=== PATIENT | female | born 1945 | race Caucasian/White ===

== ENCOUNTER → 2017-02-26 | Outpatient (CLI) | payer BC ==
[~2017-02-26] MED LIST: ANS100 PO; ATEN50TA8 PO; ATV1 PO; CALC500C70 PO; COSAMIN DS PO; FLUR100T PO; IBUP-1428 PO; LORA-741 PO; MISC1CAP7 PO; MULT-513 PO; OMEG10007 PO; OXYC-57 PO
[2017-02-26 09:32] LABS: BASO % 1.4 %; BASO ABS # 0.13 K/uL (0-0.2); COMPLETE YES; EOS % 6.5 %; HEMATOCRIT 42.8 % (37-47); IG% 0.2 %; LYMPH % 40.7 %; LYMPH ABS # 3.77 K/uL (1.2-3.4); MEAN CELL VOLUME 90.5 fL (80-100); MEAN CORPUSCULAR HEMOGLOBIN 29.8 pg (25-34); MEAN CORPUSCULAR HGB CONC 32.9 g/dl (32-36); MEAN PLATELET VOLUME 12.1 fL (7.4-10.4); MONO % 8.7 %; NEUT % 42.5 %; PLATELET COUNT 197 K/uL (130-400); RED BLOOD COUNT 4.73 M/uL (4.2-5.4); WHITE BLOOD COUNT 9.26 K/uL (4.8-10.8)
[2017-02-26 09:51] LABS: CALCIUM 9.4 mg/dl (8.5-10.1)
[2017-02-26 09:55] LABS: ALT/SGPT 30 U/L (12-78); AST/SGOT 19 U/L (15-37); BLOOD UREA NITROGEN 14 mg/dl (7-18); BUN/CREATININE RATIO 15.4 (10-20); CARBON DIOXIDE 27 mmol/L (21-32); CHLORIDE 101 mmol/L (98-107); CHOLESTEROL 217 mg/dl (0-200); CREATININE 0.91 mg/dl (0.60-1.20); GLUCOSE 96 mg/dl (70-99); POTASSIUM 4.2 mmol/L (3.5-5.1); SODIUM 137 mmol/L (136-145); TRIGLYCERIDES 238 mg/dl (0-150); VERY LOW DENSITY LIPOPROT CALC 48 mg/dl
[2017-02-26 10:05] LABS: ALKALINE PHOSPHATASE 50 U/L (45-117); CHOLESTEROL/HDL RATIO 6.6; HDL CHOLESTEROL 33 mg/dl; LDL CHOLESTEROL CALCULATED 136 mg/dl
== END | disposition home or self-care (01) ==
LOC: C.LAB1850 07:56
PROVIDERS: ATTEND Internal Medicine
DX: E78.5 Hyperlipidemia, unspecified (principal); G47.00 Insomnia, unspecified; I10 Essential (primary) hypertension

== ENCOUNTER → 2017-03-06 | Outpatient (CLI) | payer BC ==
[2017-03-06 16:07] LABS: URINE APPEARANCE CLEAR (CLEAR); URINE BILIRUBIN NEG (NEG); URINE COLOR YELLOW; URINE EPITHELIAL CELL AUTO 0-5 /lpf (0-5); URINE NITRITE NEG (NEG); URINE SPECIFIC GRAVITY 1.006 (1.000-1.030); UROBILINOGEN NEG (NEG); ZZUR CULT IF INDIC CLEAN CATCH YES
[2017-03-06 16:14] LABS: MANUAL MICROSCOPIC REQUIRED? NO; REVIEW REQ? NO
== END | disposition home or self-care (01) ==
LOC: C.LAB1850 14:24
PROVIDERS: ATTEND Internal Medicine
DX: N39.0 Urinary tract infection, site not specified (principal)

== ENCOUNTER → 2017-03-11 | Outpatient (CLI) | payer BC ==
--- NOTE | 2017-03-12 07:55 | MAMMOGRAPHY REPORT ---
BILATERAL DIGITAL SCREENING MAMMOGRAM WITH CAD: 03/11/2017 CLINICAL HISTORY: Routine screening. Patient has no complaints. TECHNIQUE: Bilateral CC, MLO and XCCl views were obtained. Current study was also evaluated with a Computer Aided Detection (CAD) system. COMPARISON: Comparison is made to exams dated: 03/06/2016 mammogram, 02/07/2015 mammogram, 02/05/2014 mammogram, 02/04/2013 mammogram, 02/04/2012 mammogram, and 01/31/2011 mammogram - [facility]. BREAST COMPOSITION: There are scattered areas of fibroglandular density in both breasts. FINDINGS: There are scattered bilateral benign round and rim calcifications. No suspicious mass, ar chitectural distortion or cluster of suspicious microcalcifications is seen. IMPRESSION: ACR BI-RADS CATEGORY 1: NEGATIVE There is no mammographic evidence of malignancy. A 1 year screening mammogram is recommended. The p atient will receive written notification of the results. Approximately 10% of breast cancers are not detected with mammography. A negative mammographic repor t should not delay biopsy if a clinically suggestive mass is present. Aster Ramírez M.D. ay/:03/11/2017 17:09:17 Portfolio Mgr: Honey MERRITT(Robin)(Xochitl)(BD), [facility] letter sent: Normal 1/2 BI-RADS Code: ACR BI-RADS Category 1: Negative
== END | disposition home or self-care (01) ==
LOC: C.MAMM 13:10
PROVIDERS: ATTEND Internal Medicine
DX: Z12.31 Encounter for screening mammogram for malignant neoplasm of breast (principal)

== ENCOUNTER → 2017-04-04 | Outpatient (CLI) | payer BC ==
[2017-04-04 12:22] LABS: URINE APPEARANCE CLOUDY (CLEAR); URINE BILIRUBIN NEG (NEG); URINE COLOR YELLOW; URINE NITRITE NEG (NEG); URINE PH 6.5 (4.5-7.5); URINE SPECIFIC GRAVITY 1.007 (1.000-1.030); UROBILINOGEN NEG (NEG); ZZUR CULT IF INDIC CLEAN CATCH YES
[2017-04-04 12:36] LABS: MANUAL MICROSCOPIC REQUIRED? NO; REVIEW REQ? NO
== END | disposition home or self-care (01) ==
LOC: C.LAB1850 11:11
PROVIDERS: ATTEND Internal Medicine
DX: N39.0 Urinary tract infection, site not specified (principal)

== ENCOUNTER → 2017-07-08 | Outpatient (CLI) | payer BC ==
[~2017-07-08] MED LIST changes: -FLUR100T PO; -LORA-741 PO; -MISC1CAP7 PO
== END | disposition home or self-care (01) ==
LOC: C.PATHSPEC 10:17
PROVIDERS: ATTEND Nurse Practitioner Adult Health
DX: N39.0 Urinary tract infection, site not specified (principal)

== ENCOUNTER → 2017-07-19 | Outpatient (CLI) | payer BC ==
[~2017-07-19] MED LIST changes: +OPTIRAY 320 IV PRN
--- NOTE | 2017-07-19 12:03 | DIAGNOSTIC IMAGING REPORT ---
ABD/PELVIS COMBO CLINICAL HISTORY: 72 years-old Female presenting with N39.0 Recurrent UTIR31.29. TECHNIQUE: Multidetector CT of the abdomen and pelvis was performed before and after the administration of intravenous contrast. IV contrast: 93 mL of Optiray 320. A dose lowering technique was used consistent with the principles of ALARA (as low as reasonably achievable). COMPARISON: 03/09/2011. CT DOSE (mGy.cm): The estimated cumulative dose is 2092.28 mGycm. FINDINGS: Lens Polisher topogram: Cholecystectomy clips. Dextrocurvature of the lumbar spine. Lung bases: Interval increase in dependent subpleural reticulation and bandlike opacities, possibly scarring or fibrotic change. Top normal heart size. Coronary artery and aortic valve calcification. No pericardial or pleural effusion. Liver: Mild macronodular contour of the inferior margin of the liver. Borderline hepatic steatosis. Multiple well-defined hypodensities consistent with hepatic cysts, unchanged. Parenchymal calcification noted at the right hepatic dome. Patent hepatic vasculature. Biliary: No intrahepatic bladder ductal dilatation. Prominence of the hepatic ducts likely a reservoir effect in the post cholecystectomy state. Gallbladder surgically absent. Pancreas: Mild parenchymal atrophy. Spleen: Normal. Adrenal glands: Normal. Kidneys and ureters: No nephrolithiasis. No hydronephrosis. Normal parenchymal enhancement. Normal bilateral excretion. Ureters normal. Bladder: Normal. No gross evidence of a urethral diverticulum within limitations of CT. Pelvic organs: Uterus and ovaries normal. Bowel: Anastomosis noted in the rectosigmoid junction likely from prior sigmoidectomy. Limited diverticulosis of the descending colon. No bowel obstruction. Small hiatal hernia. The jejunum anteriorly displaces the horizontal portion of the duodenum. Peritoneal cavity: No free fluid or intraperitoneal gas. Vasculature: Atherosclerosis of the normal caliber abdominal aorta. IVC patent. Lymph nodes: No enlarged lymph nodes in the abdomen or pelvis. Abdominal wall: Injection granuloma noted in the right abdomen. Diastases of the abdominis rectus with fat containing apparent focal hernia. Musculoskeletal: Degenerative changes of the symphysis pubis, sacroiliac joints, and spine. IMPRESSION: 1. No abnormality of the urinary tract. Normal kidneys, ureters, and bladder. 2. Postsurgical changes of sigmoidectomy. 3. Mildly macronodular contour of the liver with borderline hepatic steatosis. 4. Since 2010, interval increase in dependent subpleural reticulation and bandlike opacities at the lung bases, either scarring or fibrotic change. Electronically signed by: Gopal Paz M.D. 07/19/2017 12:02 PM Dictated Date/Time: 07/19/2017 11:52 AM
== END | disposition home or self-care (01) ==
LOC: C.CTS 11:19
PROVIDERS: ATTEND Nurse Practitioner Adult Health
DX: N39.0 Urinary tract infection, site not specified (principal); R31.29 Other microscopic hematuria

== ENCOUNTER → 2017-09-02 | Outpatient (CLI) | payer BC ==
[~2017-09-02] MED LIST changes: -CALC500C70 PO; -IBUP-1428 PO; -OPTIRAY 320 IV PRN; -OXYC-57 PO
--- NOTE | 2017-09-02 17:58 | DIAGNOSTIC IMAGING REPORT ---
LUMBAR SPINE W/O CONTRAST CLINICAL HISTORY: 72 years-old Female with LOWER BACK PAIN. Chronic low back pain without reported trauma COMPARISON: CT abdomen and pelvis 07/19/2017 TECHNIQUE: Multiplanar, multi sequence MRI of the lumbar spine was performed without intravenous contrast. FINDINGS: Several sequences are moderately motion degraded. No acute fracture or subluxation. No focal bone marrow edema or marrow replacing process. Conus medullaris terminates at L1. Signal within the cord is within normal limits. No acute intra-abdominal, intrapelvic or paraspinal abnormality identified. There is mild to moderate paraspinal muscular atrophy. Colonic diverticulosis. Approximately 30 degrees dextroscoliosis of the lumbar spine is noted with advanced multilevel severe facet arthropathy, intervertebral disc space narrowing and posterior disc osteophyte complex formation as below. Multilevel intervertebral disc space narrowing, posterior annular disc bulging and facet arthropathy of the lower thoracic spine. T12-L1: Moderate to severe intervertebral disc space narrowing with broad-based posterior disc osteophyte complex formation and moderate to severe facet arthrosis. Mild central canal with moderate bilateral foraminal narrowing on the sagittal images alone. L1-L2: Moderate to severe intervertebral disc space narrowing with broad-based posterior disc osteophyte complex, moderate right and severe left facet arthropathy with ligament flavum thickening. Changes cause mild central canal, severe left and mild right foraminal narrowing. L2-L3: Severe intervertebral disc space narrowing with circumferential disc osteophyte complex, moderate right and severe left foraminal stenosis with ligament of flavum thickening. There is moderate central canal narrowing, and severe left foraminal stenosis. Right foramen is patent. L3-L4: Severe intervertebral disc space narrowing with circumferential disc osteophyte complex and advanced bilateral facet arthropathy with ligamentum flavum thickening. There is mild central canal, severe left lateral recess and severe left foraminal narrowing. Moderate to severe right foraminal stenosis. L4-L5: Moderate to severe intervertebral disc space narrowing with spondylitic spurring and broad-based posterior disc bulge, moderate right and severe left facet arthropathy. Central canal is patent. Moderate right foraminal stenosis. Left foramen is patent. L5-S1: Severe intervertebral disc space narrowing with 5 mm anterolisthesis L5 on S1, likely secondary to long-standing facet disease. Posterior spondylitic spurring with circumferential annular disc bulge and severe facet arthropathy. Central canal is patent. Severe right and mild left foraminal stenosis. IMPRESSION: 1. No acute fracture, subluxation or focal bone marrow edema. 2. Approximately 30 degrees dextroscoliosis of the lumbar spine with multilevel severe discogenic degenerative changes and facet arthrosis resulting in varying degrees of central canal and foraminal narrowing as detailed level by level above. The degree of foraminal narrowing is most pronounced on the left at multiple levels secondary to the scoliosis. 3. Colonic diverticulosis. The above report was generated using voice recognition software. It may contain grammatical, syntax or spelling errors. Electronically signed by: Bobo Kemp M.D. 09/02/2017 5:57 PM Dictated Date/Time: 09/02/2017 5:45 PM
== END | disposition home or self-care (01) ==
LOC: C.MRIBC 16:41
PROVIDERS: ATTEND Physician Assistant Medical
DX: M54.5 Low back pain (principal); M41.86 Other forms of scoliosis, lumbar region; M51.36 Other intervertebral disc degeneration, lumbar region; M48.061 Spinal stenosis, lumbar region without neurogenic claudication; K57.30 Diverticulosis of large intestine without perforation or abscess without bleeding

== ENCOUNTER → 2017-09-06 | Outpatient (CLI) | payer BC | END | disposition home or self-care (01) | LOC: C.LAB1850 08:40 | PROVIDERS: ATTEND Internal Medicine | DX: R79.89 Other specified abnormal findings of blood chemistry (principal) ==

== ENCOUNTER → 2017-10-10 | Outpatient (CLI) | payer BC ==
[~2017-10-10] MED LIST changes: -ANS100 PO; -ATV1 PO; -COSAMIN DS PO; +FLUR100T PO; +LORA-741 PO; +MISC1CAP7 PO
[2017-10-10 13:23] LABS: URINE APPEARANCE CLEAR (CLEAR); URINE BILIRUBIN NEG (NEG); URINE COLOR YELLOW; URINE NITRITE NEG (NEG); URINE PH 5.5 (4.5-7.5); URINE SPECIFIC GRAVITY 1.012 (1.000-1.030); UROBILINOGEN NEG (NEG)
[2017-10-10 13:24] LABS: MANUAL MICROSCOPIC REQUIRED? NO; REVIEW REQ? NO
== END | disposition home or self-care (01) ==
LOC: C.LAB1850 10:52
PROVIDERS: ATTEND Nurse Practitioner Adult Health
DX: N39.0 Urinary tract infection, site not specified (principal)

== ENCOUNTER 2017-10-30 12:47 | Day surgery (SDC) | payer BC ==
[~2017-10-30] VITALS: Ht 157.5 cm; Wt 88.5 kg
[~2017-10-30 12:47] MED LIST changes: +ERTAPENEM IV 1 GM in SODIUM CHLOR 0.9% AD-VAN 50ML IV SCH
[2017-10-30 12:56] VITALS: BP 175/98; PULSE 78; TEMP 36.8; O2SAT 95; Ht 157.5 cm; Wt 88.5 kg
--- NOTE | 2017-10-30 14:28 | DIAGNOSTIC IMAGING REPORT ---
CHEST ONE VIEW PORTABLE CLINICAL HISTORY: PICC catheter placement COMPARISON STUDY: 09/19/2017 FINDINGS: The cardiac and mediastinal contours remain stable. There is no overt failure. There are no significant pleural effusions. There is no focal pulmonary consolidation. There has been interval placement of a right-sided PICC catheter. The tip projects over the superior vena cava near the level of the innominate vein confluence.[ IMPRESSION: Interval placement of a right-sided PICC catheter. The tip projects over the superior aspect of the superior vena cava Electronically signed by: Junaid Cain M.D. 10/30/2017 2:26 PM Dictated Date/Time: 10/30/2017 2:24 PM
== END 2017-12-19 10:16 | disposition home or self-care (01) ==
LOC: C.MTU 12:47 → EDSTATUS 13:00 → C.MTU 12-19 10:16
PROVIDERS: ATTEND Internal Medicine Infectious Disease
DX: N39.0 Urinary tract infection, site not specified (principal)

== ENCOUNTER → 2017-11-06 | Outpatient (CLI) | payer BC ==
[~2017-11-06] MED LIST changes: -ERTAPENEM IV 1 GM in SODIUM CHLOR 0.9% AD-VAN 50ML IV SCH; -MISC1CAP7 PO
[2017-11-06 12:16] LABS: HEMATOCRIT 41.8 % (37-47); MEAN CELL VOLUME 89.7 fL (80-100); MEAN CORPUSCULAR HGB CONC 33.5 g/dl (32-36); MEAN PLATELET VOLUME 12.2 fL (7.4-10.4); PLATELET COUNT 218 K/uL (130-400); RED CELL DISTRIBUTION WIDTH CV 13.7 % (11.5-14.5); RED CELL DISTRIBUTION WIDTH SD 45.2 fL (36.4-46.3); WHITE BLOOD COUNT 11.83 K/uL (4.8-10.8)
[2017-11-06 12:38] LABS: ALBUMIN 3.7 gm/dl (3.4-5.0); ALKALINE PHOSPHATASE 88 U/L (45-117); ALT/SGPT 38 U/L (12-78); AST/SGOT 28 U/L (15-37); BLOOD UREA NITROGEN 17 mg/dl (7-18); CALCIUM 9.1 mg/dl (8.5-10.1); CARBON DIOXIDE 27 mmol/L (21-32); CREATININE 0.85 mg/dl (0.60-1.20); GLUCOSE 89 mg/dl (70-99); POTASSIUM 4.2 mmol/L (3.5-5.1); SODIUM 135 mmol/L (136-145); TOTAL PROTEIN 8.1 gm/dl (6.4-8.2)
== END | disposition home or self-care (01) ==
LOC: C.LABSPEC 11:50
PROVIDERS: ATTEND Internal Medicine Infectious Disease
DX: N39.0 Urinary tract infection, site not specified (principal)

== ENCOUNTER → 2017-11-13 | Outpatient (CLI) | payer BC ==
[2017-11-13 12:13] LABS: HEMATOCRIT 40.9 % (37-47); HEMOGLOBIN 13.6 g/dL (12.0-16.0); MEAN CELL VOLUME 89.3 fL (80-100); MEAN CORPUSCULAR HEMOGLOBIN 29.7 pg (25-34); MEAN CORPUSCULAR HGB CONC 33.3 g/dl (32-36); MEAN PLATELET VOLUME 12.3 fL (7.4-10.4); PLATELET COUNT 225 K/uL (130-400); RED CELL DISTRIBUTION WIDTH CV 13.6 % (11.5-14.5); RED CELL DISTRIBUTION WIDTH SD 44.6 fL (36.4-46.3); WHITE BLOOD COUNT 10.55 K/uL (4.8-10.8)
[2017-11-13 12:56] LABS: ALBUMIN 3.7 gm/dl (3.4-5.0); ALT/SGPT 31 U/L (12-78); AST/SGOT 21 U/L (15-37); BLOOD UREA NITROGEN 15 mg/dl (7-18); CALCIUM 8.8 mg/dl (8.5-10.1); CARBON DIOXIDE 27 mmol/L (21-32); CREATININE 0.82 mg/dl (0.60-1.20); GLUCOSE 79 mg/dl (70-99); POTASSIUM 4.1 mmol/L (3.5-5.1); SODIUM 135 mmol/L (136-145)
[2017-11-13 12:58] LABS: ALKALINE PHOSPHATASE 91 U/L (45-117); TOTAL PROTEIN 7.9 gm/dl (6.4-8.2)
== END | disposition home or self-care (01) ==
LOC: C.LABSPEC 11:33
PROVIDERS: ATTEND Internal Medicine Infectious Disease
DX: N39.0 Urinary tract infection, site not specified (principal)

== ENCOUNTER → 2017-11-20 | Outpatient (CLI) | payer BC ==
[2017-11-20 13:14] LABS: HEMOGLOBIN 13.1 g/dL (12.0-16.0); MEAN CORPUSCULAR HEMOGLOBIN 29.9 pg (25-34); MEAN CORPUSCULAR HGB CONC 33.6 g/dl (32-36); MEAN PLATELET VOLUME 12.5 fL (7.4-10.4); PLATELET COUNT 188 K/uL (130-400); RED CELL DISTRIBUTION WIDTH CV 13.5 % (11.5-14.5); RED CELL DISTRIBUTION WIDTH SD 43.9 fL (36.4-46.3)
[2017-11-20 13:48] LABS: ALBUMIN 3.5 gm/dl (3.4-5.0); ALKALINE PHOSPHATASE 95 U/L (45-117); BLOOD UREA NITROGEN 14 mg/dl (7-18); CALCIUM 8.6 mg/dl (8.5-10.1); CARBON DIOXIDE 25 mmol/L (21-32); GLUCOSE 86 mg/dl (70-99); POTASSIUM 4.2 mmol/L (3.5-5.1); SODIUM 130 mmol/L (136-145); TOTAL PROTEIN 7.7 gm/dl (6.4-8.2)
[2017-11-20 13:49] LABS: ALT/SGPT 28 U/L (12-78); AST/SGOT 21 U/L (15-37)
== END | disposition home or self-care (01) ==
LOC: C.LABSPEC 12:01
PROVIDERS: ATTEND Internal Medicine Infectious Disease
DX: N39.0 Urinary tract infection, site not specified (principal)

== ENCOUNTER → 2017-11-26 | Outpatient (CLI) | payer BC ==
[2017-11-26 14:50] LABS: ALBUMIN 3.6 gm/dl (3.4-5.0); ALKALINE PHOSPHATASE 91 U/L (45-117); ALT/SGPT 29 U/L (12-78); AST/SGOT 20 U/L (15-37); BLOOD UREA NITROGEN 16 mg/dl (7-18); CARBON DIOXIDE 28 mmol/L (21-32); CREATININE 0.98 mg/dl (0.60-1.20); GLUCOSE 86 mg/dl (70-99); POTASSIUM 4.1 mmol/L (3.5-5.1); SODIUM 137 mmol/L (136-145); TOTAL PROTEIN 7.4 gm/dl (6.4-8.2)
[2017-11-26 14:54] LABS: HEMATOCRIT 39.7 % (37-47); HEMOGLOBIN 13.3 g/dL (12.0-16.0); MEAN CELL VOLUME 89.2 fL (80-100); MEAN CORPUSCULAR HEMOGLOBIN 29.9 pg (25-34); MEAN CORPUSCULAR HGB CONC 33.5 g/dl (32-36); MEAN PLATELET VOLUME 12.3 fL (7.4-10.4); PLATELET COUNT 193 K/uL (130-400); RED CELL DISTRIBUTION WIDTH CV 13.8 % (11.5-14.5); RED CELL DISTRIBUTION WIDTH SD 45.4 fL (36.4-46.3); WHITE BLOOD COUNT 10.09 K/uL (4.8-10.8)
== END | disposition home or self-care (01) ==
LOC: C.LABSPEC 13:46
PROVIDERS: ATTEND Internal Medicine Infectious Disease
DX: N39.0 Urinary tract infection, site not specified (principal)

== ENCOUNTER → 2017-12-02 | Outpatient (CLI) | payer BC ==
[2017-12-02 12:00] LABS: HEMATOCRIT 39.8 % (37-47); HEMOGLOBIN 13.5 g/dL (12.0-16.0); MEAN CELL VOLUME 89.2 fL (80-100); MEAN CORPUSCULAR HEMOGLOBIN 30.3 pg (25-34); MEAN CORPUSCULAR HGB CONC 33.9 g/dl (32-36); MEAN PLATELET VOLUME 12.1 fL (7.4-10.4); PLATELET COUNT 189 K/uL (130-400); RED CELL DISTRIBUTION WIDTH CV 13.5 % (11.5-14.5); RED CELL DISTRIBUTION WIDTH SD 44.3 fL (36.4-46.3); WHITE BLOOD COUNT 8.52 K/uL (4.8-10.8)
[2017-12-02 12:14] LABS: ALBUMIN 3.6 gm/dl (3.4-5.0); ALT/SGPT 30 U/L (12-78); AST/SGOT 21 U/L (15-37); BLOOD UREA NITROGEN 16 mg/dl (7-18); CALCIUM 8.9 mg/dl (8.5-10.1); CARBON DIOXIDE 26 mmol/L (21-32); CREATININE 0.81 mg/dl (0.60-1.20); GLUCOSE 96 mg/dl (70-99); POTASSIUM 4.1 mmol/L (3.5-5.1); SODIUM 135 mmol/L (136-145)
[2017-12-02 12:16] LABS: ALKALINE PHOSPHATASE 96 U/L (45-117); TOTAL PROTEIN 7.7 gm/dl (6.4-8.2)
== END | disposition home or self-care (01) ==
LOC: C.LABSPEC 11:32
PROVIDERS: ATTEND Internal Medicine Infectious Disease
DX: N39.0 Urinary tract infection, site not specified (principal)

== ENCOUNTER → 2017-12-12 | Outpatient (CLI) | payer BC | END | disposition home or self-care (01) | LOC: C.LABSPEC 10:25 | PROVIDERS: ATTEND Internal Medicine Infectious Disease | DX: N39.0 Urinary tract infection, site not specified (principal) ==

== ENCOUNTER 2018-01-26 10:41 | Inpatient (IN) | payer BC, OTHER ==
[~2018-01-26] VITALS: Ht 157.5 cm; Wt 88.9 kg
[2018-01-26] MEDS ORDERED: ACETAMINOPHEN 325 MG TAB PO STA (11:05)
[2018-01-26] MEDS ORDERED: SODIUM CHLORIDE 0.9% 1000ML 1,000 ML IV STA (11:05)
[2018-01-26] MEDS ORDERED: OPTIRAY 320 IV PRN (11:15)
--- NOTE | 2018-01-26 11:20 | DIAGNOSTIC IMAGING REPORT ---
CHEST ONE VIEW PORTABLE CLINICAL HISTORY: Fever, cough. COMPARISON STUDY: 10/30/2017 FINDINGS: The right-sided PICC catheter has been removed. The cardiac and mediastinal contours remain stable. There is no focal pulmonary consolidation. There are no pleural effusions. There is no failure.[ IMPRESSION: Interval removal of the right-sided PICC catheter. No acute findings. Electronically signed by: Junaid Cain M.D. 01/26/2018 11:19 AM Dictated Date/Time: 01/26/2018 11:18 AM
[2018-01-26 11:48] LABS: BASO % 0.5 %; BASO ABS # 0.11 K/uL (0-0.2); EOS % 0.5 %; EOS ABS # 0.11 K/uL (0-0.5); HEMATOCRIT 41.1 % (37-47); HEMOGLOBIN 14.3 g/dL (12.0-16.0); IG# 0.08 K/uL (0.00-0.02); LYMPH % 14.4 %; LYMPH ABS # 3.29 K/uL (1.2-3.4); MEAN CELL VOLUME 85.8 fL (80-100); MEAN CORPUSCULAR HEMOGLOBIN 29.9 pg (25-34); MEAN CORPUSCULAR HGB CONC 34.8 g/dl (32-36); MEAN PLATELET VOLUME 11.2 fL (7.4-10.4); MONO % 12.6 %; MONO ABS # 2.89 K/uL (0.11-0.59); NEUT % 71.7 %; NEUT ABS # 16.39 K/uL (1.4-6.5); PLATELET COUNT 262 K/uL (130-400); RED CELL DISTRIBUTION WIDTH SD 43.9 fL (36.4-46.3); WHITE BLOOD COUNT 22.87 K/uL (4.8-10.8)
[2018-01-26] MEDS ORDERED: GLUC10007 PO (11:58)
[2018-01-26 12:02] LABS: ALBUMIN 3.1 gm/dl (3.4-5.0); CALCIUM 8.6 mg/dl (8.5-10.1); CREATININE 1.03 mg/dl (0.60-1.20); POTASSIUM 3.8 mmol/L (3.5-5.1)
[2018-01-26 12:12] LABS: TOTAL PROTEIN 7.4 gm/dl (6.4-8.2)
[2018-01-26] MEDS ORDERED: PIPERACILLIN/TAZOBACTAM 4.5 GM/100ML D5W IV STA (12:34)
[2018-01-26 12:36] LABS: INFLUENZA B ANTIGEN Neg for Influ B (NEG)
--- NOTE | 2018-01-26 12:43 | DIAGNOSTIC IMAGING REPORT ---
CT ABD/PELVIS IV CONTRAST ONLY CLINICAL HISTORY: Fever, diarrhea, drug resistant urinary tract infection. COMPARISON STUDY: 07/19/2017 TECHNIQUE: Following the IV administration of 93 mL of Optiray-320, CT scan of the abdomen and pelvis was performed from the lung bases to the proximal femurs. Images are reviewed in the axial, sagittal, and coronal planes. IV contrast was administered without complication. A dose lowering technique was utilized adhering to the principles of ALARA. CT DOSE: 727.11 mGy.cm FINDINGS: Lower chest: There are basilar atelectatic changes. There is mild subpleural reticulation. Liver: There is hepatic steatosis. There is a 28 mm left lobe hepatic hypodensity likely representing a cyst. There is additional hypodensity the junction of the right and left lobes, likely representing an additional cyst. Gallbladder: Surgically absent. There is mild dilatation of the common hepatic and common bile duct. Spleen: Normal in size and attenuation. Pancreas: Unremarkable. Adrenal glands: Unremarkable. Kidneys: There is symmetric renal cortical enhancement. The kidneys are normal in size without hydronephrosis. Bowel: There is diffuse colonic wall thickening with mild infiltration the pericolonic fat. The findings are indicative of a pancolitis. There are no findings to indicate acute diverticulitis. Peritoneum: There is no intraperitoneal free air or abdominal ascites. There is a small ventral hernias similar to the prior study Vasculature: The abdominal aorta is normal in course and caliber. Adenopathy: There are scattered mildly prominent mesenteric lymph nodes likely reactive Pelvic viscera: The bladder, and pelvic viscera are unremarkable. Skeletal structures: No destructive osseous lesions are seen. IMPRESSION: 1. Moderately extensive diffuse colonic wall thickening consistent with a pancolitis. 2. No evidence of bowel obstruction. No evidence of free air 3. Hepatic steatosis. Electronically signed by: Junaid Cain M.D. 01/26/2018 12:42 PM Dictated Date/Time: 01/26/2018 12:38 PM
[2018-01-26] MEDS ORDERED: METRONIDAZOLE 500MG / 100ML NSS IV STA (12:48)
--- NOTE | 2018-01-26 13:10 | EMERGENCY ROOM VISIT NOTE ---
ED Visit Note First contact with patient: 10:53 Patient was seen by our PA/LABORATORY SUPERVISOR. I was involved in the patient's care and did evaluate the patient myself. I was involved in the care throughout the ER stay. The patient presents with diarrhea. She has been on recent antibiotics, C. difficile is a concern. She has not yet been able to provide a stool sample. She has a high white count and does seem to have a UTI by workup. I do think a hospital stay is warranted. IV antibiotics, IV Flagyl have been administered.
[2018-01-26 13:59] VITALS: O2SAT 97; Ht 157.5 cm; Wt 88.9 kg
[2018-01-26 14:22] VITALS: O2SAT 98
[2018-01-26] MEDS ORDERED: PIPERACILL/TAZOBAC CONSULT ACTIVE PRN (14:30)
[2018-01-26] MEDS ORDERED: MAGNESIUM HYDROXIDE SUSP 30 ML UDC PO PRN (14:30)
[2018-01-26] MEDS ORDERED: ONDANSETRON INJ 2 MG/ML 2 ML VIAL IV PRN (14:30)
[2018-01-26] MEDS ORDERED: ACETAMINOPHEN 325 MG TAB PO PRN (14:30)
--- NOTE | 2018-01-26 14:50 | History and Physical ---
History & Physical Date & Time of Service: Jan 26, 2018 at 14:29 Chief Complaint: Stopped Iv Anitbiotics 3WKS Ago,Diarrhea Primary Care Physician: RV. Cortez MD History of Present Illness Source: patient 72 y/o F c/o worsening diarrhea. Pt states that she has been on and off IV abx for the last few months due to a persistent/recurrent MDR Ecoli UTI. She follows with Dr. Lui for this. She had the first of these UTIs over a year ago and had been on multiple courses of macrobid via her PCP. The UTI would not clear and she started working with Dr. Lui more recently. She was initially place on Invanz, however after she completed a course her urine cx was still +. She completed a second course of Invanz, but again with a + cx. She was then put on Avycaz which she finished about 3 weeks ago. She went on a cruise with her sister within a few days of completion of IV abx. She had a few bouts of "mild" diarrhea, fatigue, joint aches. She took Imodium and this cleared quickly. She then went to [place] and had another few bouts of mild diarrhea, which again cleared with Imodium. Pt started having much more intense diarrhea with fevers on Saturday and this has worsened since that time. She has been having about 15-18 bowel movements daily. She has lower abd pain. She is nauseated at times, but no emesis and she has been able to eat without issue other than low appetite due to fatigue and worsening joint aches. Pt denies fever, SOB, chest pain, LE pain or swelling. Pt was on a probiotic with the extended abx use, but she is not sure what type of bacteria she was taking. She has never had cdiff prior, however her sister has hx of MDR UTI and cdiff as well. Pt initially was not able to have a bowel movement upon arrival to the ED, however she did take Imodium around 4am today. She is now returning to frequent bowel movements. Pt states her UTI sx are cloudy urine with mild burning and she has been having those again. She feels that she "picked something up" in 2016 on a trip to [place] as it was shortly after this that her UTI issues started. She is concerned that this bacteria is spreading throughout her entire body at this point. Pt called Dr. Lui's office on Saturday for an appt, however there was no availability. She is to see Dr. Lui tomorrow. Past Medical/Surgical History Medical Problems: (1) Diarrhea HTN PACs OA MDR UTI Insomnia Family History Father s/p CVA at 86 y/o Social History Smoking Status: Former Smoker Alcohol Use: none Drug Use: none Marital Status: Housing status: lives alone Occupational Status: retired Allergies Coded Allergies: Statins (Verified Adverse Reaction, Unknown, MUSCLE ACHES, 01/26/18) Home Medications Scheduled Atenolol (Tenormin), 50 MG PO TID Fish Oil (Gridley-3), 1 CAP PO BID Flurbiprofen (Ansaid), 100 MG PO BID Glucosamine Sulfate (Glucosamine), 1,000 MG PO DAILY Lorazepam (Ativan), 0.5 MG PO HS Multivitamins/Minerals (Mvi With Minerals), 1 TAB PO QAM Review of Systems Pertinent positives and negatives reviewed in HPI--all others negative Physical Exam Vital Signs Date Time Temp Pulse Resp B/P (MAP) Pulse Ox O2 Delivery O2 Flow Rate FiO2 01/26/18 14:22 78 17 134/70 98 Room Air 01/26/18 13:59 97 Room Air 01/26/18 12:45 72 18 144/74 97 Room Air 01/26/18 12:06 73 01/26/18 11:40 95 Room Air 01/26/18 10:46 37.9 85 16 154/85 97 Room Air General Appearance: WD/WN, no apparent distress Head: normocephalic, atraumatic Eyes: normal inspection, sclerae normal Respiratory/Chest: normal breath sounds, no respiratory distress Cardiovascular: regular rate, rhythm, no edema Abdomen/GI: non tender, soft Extremities/Musculoskelatal: no calf tenderness, no pedal edema Neurologic/Psych: alert, normal mood/affect, oriented x 3 Skin: normal color, warm/dry Diagnostics Laboratory Results Results Past 24 Hours Test 01/26/18 11:25 01/26/18 11:39 01/26/18 12:40 Range/Units White Blood Count 22.87 4.8-10.8 K/uL Red Blood Count 4.79 4.2-5.4 M/uL Hemoglobin 14.3 12.0-16.0 g/dL Hematocrit 41.1 37-47 % Mean Corpuscular Volume 85.8 80-100 fL Mean Corpuscular Hemoglobin 29.9 25-34 pg Mean Corpuscular Hemoglobin Concent 34.8 32-36 g/dl Platelet Count 262 130-400 K/uL Mean Platelet Volume 11.2 7.4-10.4 fL Neutrophils (%) (Auto) 71.7 % Lymphocytes (%) (Auto) 14.4 % Monocytes (%) (Auto) 12.6 % Eosinophils (%) (Auto) 0.5 % Basophils (%) (Auto) 0.5 % Neutrophils # (Auto) 16.39 1.4-6.5 K/uL Lymphocytes # (Auto) 3.29 1.2-3.4 K/uL Monocytes # (Auto) 2.89 0.11-0.59 K/uL Eosinophils # (Auto) 0.11 0-0.5 K/uL Basophils # (Auto) 0.11 0-0.2 K/uL RDW Standard Deviation 43.9 36.4-46.3 fL RDW Coefficient of Variation 14.0 11.5-14.5 % Immature Granulocyte % (Auto) 0.3 % Immature Granulocyte # (Auto) 0.08 0.00-0.02 K/uL Sodium Level 131 136-145 mmol/L Potassium Level 3.8 3.5-5.1 mmol/L Chloride Level 98 98-107 mmol/L Carbon Dioxide Level 23 21-32 mmol/L Anion Gap 10.0 3-11 mmol/L Blood Urea Nitrogen 9 7-18 mg/dl Creatinine 1.03 0.60-1.20 mg/dl Est Creatinine Clear Calc Drug Dose 50.4 ml/min Estimated GFR () 62.5 Estimated GFR (Non- 53.9 BUN/Creatinine Ratio 9.0 10-20 Random Glucose 117 70-99 mg/dl Calcium Level 8.6 8.5-10.1 mg/dl Magnesium Level 2.1 1.8-2.4 mg/dl Total Bilirubin 0.4 0.2-1 mg/dl Aspartate Amino Transf (AST/SGOT) 10 15-37 U/L Alanine Aminotransferase (ALT/SGPT) 21 12-78 U/L Alkaline Phosphatase 73 45-117 U/L Total Protein 7.4 6.4-8.2 gm/dl Albumin 3.1 3.4-5.0 gm/dl Globulin 4.3 2.5-4.0 gm/dl Albumin/Globulin Ratio 0.7 0.9-2 Lipase 64 73-393 U/L Thyroid Stimulating Hormone (TSH) 2.600 0.300-4.500 uIu/ml Influenza Type A Antigen Neg for Influ A NEG Influenza Type B Antigen Neg for Influ B NEG Lactic Acid Level 2.1 0.4-2.0 mmol/L Urine Color YELLOW Urine Appearance CLOUDY CLEAR Urine pH 6.5 4.5-7.5 Urine Specific [place] 1.024 1.000-1.030 Urine Protein NEG NEG Urine Glucose (UA) NEG NEG Urine Ketones NEG NEG Urine Occult Blood TRACE NEG Urine Nitrite POS NEG Urine Bilirubin NEG NEG Urine Urobilinogen NEG NEG Urine Leukocyte Esterase LARGE NEG Urine WBC (Auto) >30 0-5 /hpf Urine RBC (Auto) 0-4 0-4 /hpf Urine Hyaline Casts (Auto) 1-5 0-5 /lpf Urine Epithelial Cells (Auto) 10-20 0-5 /lpf Urine Bacteria (Auto) 3+ NEG Microbiology Results 01/26/18 Blood Culture, Received Pending 01/26/18 Blood Culture, Received Pending 01/26/18 C.difficile Toxin B Gene (PCR), Received Pending 01/26/18 Shiga Toxin Test, Received Pending 01/26/18 Stool Culture, Received Pending 01/26/18 Urine Culture, Received Pending Diagnostic Radiology CTAP: pancolitis, hepatic steatosis Impression Assessment and Plan 72 y/o F who was admitted on 01/26 for MDR UTI and cdiff Diarrhea: Likely cdiff related to ongoing IV abx use Start on flagyl given no hx of prior cdiff Cdiff toxin pending Stool cx pending Pt would ideally be put on S boulardii, however given she may need a PICC line, will avoid in this setting Lactobacillus and other probiotics will be fine with a PICC Advised against further Imodium use MDR UTI: Hx of failure of invanz x2 and ayvcaz x1 Recent cx on 12/12 suggests sensitivity to zosyn, will use this for now Follows with Dr. Lui for this, c/s pending HypoNa: likely related to diarrhea Monitor on IVF Joint pain: likely OA pain that is being worsened by inflammation from multiple infections Lyme titer pending Flu neg HTN/PACs: atenolol as prior Insomnia: ativan HS PRN as prior Other: Full code SCDs for DVT proph given risk of GIB with rx proph in the setting of high flow diarrhea in this age group Reg diet Advanced Directives Existing Living Will: Yes Existing Power of Naval Architect Specialist: No Resuscitation Status VTE Prophylaxis Will order VTE Prophylaxis: Yes Reason for no VTE drug order: Contraindicated
[2018-01-26] MEDS: SODIUM CHLORIDE 0.9% 1000ML 1,000 ML IV SCH (16:03)
[2018-01-26 16:15] VITALS: BP 139/80; PULSE 69; TEMP 36.5; O2SAT 96
[2018-01-26] MEDS: PIPERACILL/TAZOBAC IV 3.375 GM in DEXTROSE 5% 100ML 100 ML IV SCH (17:16)
[2018-01-26] MEDS: LACTOBACILLUS ACIDOPHILUS (FLORANEX) TAB PO SCH (17:16)
[2018-01-26] MEDS: OMEGA-3 (PURIFIED FISH OIL) 1 GM CAP PO SCH (19:48)
[2018-01-26] MEDS: METRONIDAZOLE 500 MG TAB PO SCH (19:48)
[2018-01-26] MEDS: LORAZEPAM 0.5 MG TAB PO PRN (22:16)
[2018-01-26 22:55] VITALS: BP 102/64; PULSE 66; TEMP 37.5; O2SAT 92
[2018-01-27] MEDS: SODIUM CHLORIDE 0.9% 1000ML 1,000 ML IV SCH ×3 (01:17→21:32)
[2018-01-27] MEDS: PIPERACILL/TAZOBAC IV 3.375 GM in DEXTROSE 5% 100ML 100 ML IV SCH ×2 (01:17→10:07)
[2018-01-27 05:18] LABS: HEMATOCRIT 38.1 % (37-47); HEMOGLOBIN 12.8 g/dL (12.0-16.0); MEAN CELL VOLUME 87.6 fL (80-100); MEAN CORPUSCULAR HEMOGLOBIN 29.4 pg (25-34); MEAN CORPUSCULAR HGB CONC 33.6 g/dl (32-36); MEAN PLATELET VOLUME 11.5 fL (7.4-10.4); PLATELET COUNT 136 K/uL (130-400); RED CELL DISTRIBUTION WIDTH CV 13.9 % (11.5-14.5); RED CELL DISTRIBUTION WIDTH SD 44.6 fL (36.4-46.3); WHITE BLOOD COUNT 13.74 K/uL (4.8-10.8)
[2018-01-27 05:44] LABS: CALCIUM 8.1 mg/dl (8.5-10.1); CREATININE 0.93 mg/dl (0.60-1.20); POTASSIUM 3.9 mmol/L (3.5-5.1)
[2018-01-27 07:48] VITALS: BP 110/66; PULSE 60; TEMP 37.1; O2SAT 96
[2018-01-27] MEDS: LACTOBACILLUS ACIDOPHILUS (FLORANEX) TAB PO SCH ×3 (08:58→17:38)
[2018-01-27] MEDS: METRONIDAZOLE 500 MG TAB PO SCH (09:00)
[2018-01-27] MEDS: OMEGA-3 (PURIFIED FISH OIL) 1 GM CAP PO SCH ×2 (09:00→21:30)
[2018-01-27] MEDS: CEROVITE ADV FORMULA TAB PO SCH (09:00)
[2018-01-27] MEDS: GLUCOSAMINE SULFATE 500 MG CAP PO SCH (09:01)
--- NOTE | 2018-01-27 11:22 | Progress Note ---
Progress Note Date of Service Jan 27, 2018. Progress Note ID Consult Dictated #[id number] A/P: 1. C. diff colitis 2. Leukocytosis -Add po vanco -Stop zosyn, h/o MDR E. coli, urine culture +, pt asymptomatic and feels culture contaminated -Follow blood cultures, pending -Will hold systemic abx for now as she is stable and without urinary complaints. Ct with pancolitis. If clinical worsening, would add avycaz and follow final cultures -Will follow, thank you
[2018-01-27] MEDS: RASPBERRY SYRUP 5 ML UDP PO SCH ×3 (12:50→23:21)
[2018-01-27] MEDS: VANCOMYCIN HCL 125 MG/2.5ML SOLN PO SCH ×3 (12:50→23:20)
[2018-01-27 14:11] VITALS: BP 124/79; PULSE 64
--- NOTE | 2018-01-27 14:15 | INFECT. DISEASE CONSULTATION ---
DATE OF CONSULTATION: 01/27/2018 HISTORY OF PRESENT ILLNESS: This is a 72-year-old female who was admitted to the hospital with worsening diarrhea. She does follow with Dr. Lui in the infectious diseases office for a multidrug resistant E. coli urinary tract infection. She has been treated over a 9-week period of time with 45 days of intravenous antibiotics, first with Invanz and most recently with Avycaz. She completed her course of antibiotics and did not have any urinary symptoms and her PICC line was subsequently removed. Since that time, she has been traveling to multiple places including on a cruise and to [place] at least once or twice. She states most recently on Saturday or Saturday of last week, she began having increased diarrhea. She did call the infectious diseases office and she scheduled a visit for this morning; however, she had worsening diarrhea over the weekend and came into the hospital. She was found at that time to have a positive C. diff. A CAT scan of the abdomen and pelvis was performed and showed pancolitis. She was started on Flagyl. She did have a T-max of 37.9 in the ER, but has otherwise been afebrile. She initially had a leukocytosis of 22.8, which has improved to 13 today. She currently is not having any urinary symptoms; however, her urinalysis showed large leukocyte esterase, greater than 30 wbc's and 3+ bacteria. She was started empirically on Zosyn. A flu swab was negative in the ER. Blood and urine cultures are pending. Currently, she denies any abdominal pain but states she remains somewhat distended. She denies any fevers or chills. She has no cough, shortness of breath, nausea or vomiting. She is tolerating antibiotics well. With regards to her diarrhea, she states it is improving but is still loose and she does feel that her urine sample is contaminated with stool secondary to incontinence at the time that she provided a urine specimen. Her remaining review of systems is unremarkable. PAST MEDICAL HISTORY: Significant for hypertension, osteoarthritis, insomnia, and a recent multidrug resistant urinary tract infection. PAST SURGICAL HISTORY: Unremarkable. FAMILY HISTORY: Unremarkable. SOCIAL HISTORY: Significant for history of tobacco use. She denies any alcohol or drug use. Her travel history is as above. ALLERGIES: SHE IS ALLERGIC TO STATIN DRUGS. MEDICATIONS: Multivitamin, glucosamine, Flagyl, atenolol, fish oil, Zosyn, Floranex, Tylenol, milk of magnesia, Zofran, Ativan. PHYSICAL EXAMINATION: VITAL SIGNS: She is currently afebrile. Her T-max is 37.9 in the ER, pulse 60, respiratory rate 18, blood pressure 110/66, oxygen saturation is 96% on room air. GENERAL: She is awake, alert and oriented x3. She is in no acute distress. HEENT: Mucous membranes are moist. Extraocular muscles are intact. HEART: Regular. LUNGS: Clear bilaterally. ABDOMEN: Soft, nontender, and nondistended. EXTREMITIES: There is no lower extremity edema. SKIN: Without rash. LABORATORY STUDIES: CBC today, white blood cell count 13.7, down from 22.8 in the Emergency Room, hemoglobin 12.8, and platelets 136. Chemistry panel today, sodium 138, potassium 3.9, chloride 105, bicarbonate 25, BUN 9, creatinine 0.9, and glucose 99. Lactic acid in the ER was 2.1. LFTs were within normal limits. Again, urinalysis had large leukocyte esterase, greater than 30 wbc's, 10-20 epithelial cells, and 3+ bacteria. Flu swab was negative. Urine culture from the 8th is growing E. coli. Blood cultures are pending. Stool from the 8th is positive for C. diff. Again, chest x-ray in the ER was unremarkable. CAT scan of the abdomen and pelvis showed pancolitis. ASSESSMENT AND PLAN: 1. Clostridium difficile colitis, likely related to recent outpatient antibiotic use. 2. Leukocytosis, which is improving. At this time, she will be changed to oral vancomycin. I do not feel that Zosyn is indicated. Certainly, her urine culture is positive, but she is asymptomatic and does carry a history of multidrug resistant E. coli. I will focus her on treatment for C. diff colitis and will have further discussion regarding any management of positive urine cultures should they persist but I would prefer to have a repeat UA and urine culture when the patient's diarrhea has improved somewhat if she does feel this could have been a contaminated specimen. Blood cultures are pending and we will follow along with you. Thank you for this consultation.
--- NOTE | 2018-01-27 15:09 | Hospitalist Progress Note ---
Hospitalist Progress Note Date of Service Jan 27, 2018. (Elo Adam PA-C) Subjective Pt evaluation today including: conversation w/ patient, conversation w/ family (friend), physical exam, chart review, lab review, review of studies, review of inpatient medication list Pain: None PO Intake: Adequate Voiding: no voiding problems Patient seen and evaluated. No acute events overnight. Remains afebrile and leukocytosis is improving. Reporting feeling much better compared to admission. Continues to have frequent BMs and currently at 7 today alone. No abdominal pain or urinary symptoms. ID on the case and evaluated patient today. Constitutional: No fever, No chills Respiratory: No cough, No shortness of breath Cardiovascular: No chest pain Abdomen: + diarrhea, No pain, No nausea, No vomiting, No constipation, No GI bleeding Musculoskeletal: No swelling, No calf pain Female : No dysuria, No urinary frequency Heme: No abnormal bleeding/bruising Skin: No rash (Elo Adam PA-C) Medications Current Inpatient Medications Medications (Trade) Dose Ordered Sig/Sujata Route Start Time Stop Time Status Last Admin Dose Admin Ioversol (Optiray 320) 100 ml UD PRN IV 01/26/18 11:15 01/30/18 11:14 Acetaminophen (Tylenol Tab) 650 mg Q4H PRN PO 01/26/18 14:30 02/25/18 14:29 01/26/18 22:16 650 MG Magnesium Hydroxide (Milk Of Magnesia Susp) 30 ml Q6H PRN PO 01/26/18 14:30 02/25/18 14:29 Ondansetron HCl (Zofran Inj) 4 mg Q6H PRN IV 01/26/18 14:30 02/25/18 14:29 Sodium Chloride 1,000 ml @ 100 mls/hr Q10H IV 01/26/18 16:00 02/25/18 15:59 01/27/18 12:52 100 MLS/HR Atenolol (Tenormin Tab) 50 mg TID PO 01/26/18 21:00 02/25/18 20:59 01/27/18 14:10 50 MG Fish Oil ([place]-3 (Purified Fish Oil) Cap) 1 gm BID PO 01/26/18 21:00 02/25/18 20:59 01/27/18 09:00 1 GM Lorazepam (Ativan Tab) 0.5 mg HS PRN PO 01/26/18 14:30 02/25/18 14:29 01/26/18 22:16 0.5 MG Multivitamins/ Minerals (Multivitamin W/ Minerals Tab) 1 tab QAM PO 01/27/18 09:00 02/26/18 08:59 01/27/18 09:00 1 TAB Miscellaneous Information (Order Awaiting Action) 1 ea QS N/A 01/26/18 16:00 02/25/18 15:59 Glucosamine Sulfate (Glucosamine Cap) 1,000 mg DAILY PO 01/27/18 09:00 02/26/18 08:59 01/27/18 09:01 1,000 MG Lactobacillus Acidophilus (Floranex Tab) 4 tab TIDM PO 01/26/18 17:00 02/25/18 17:59 01/27/18 12:51 4 TAB Vancomycin HCl (Vancomycin Oral Soln) 125 mg Q6 PO 01/27/18 12:00 02/10/18 11:59 01/27/18 12:50 125 MG Raspberry (Raspberry Syrup 5ml Cup) 5 ml Q6 PO 01/27/18 12:00 02/10/18 11:59 01/27/18 12:50 5 ML (Elo Adam PA-C) Objective Vital Signs Date Time Temp Pulse Resp B/P (MAP) Pulse Ox O2 Delivery O2 Flow Rate FiO2 01/27/18 14:11 64 124/79 (94) 01/27/18 08:15 Room Air 01/27/18 07:48 37.1 60 18 110/66 (81) 96 Room Air 01/27/18 00:05 Room Air 01/26/18 22:55 37.5 66 18 102/64 (77) 92 Room Air 01/26/18 16:15 36.5 69 18 139/80 (99) 96 Room Air 01/26/18 16:00 Room Air (Elo Adam PA-C) Physical Exam General Appearance: WD/WN, no apparent distress Eyes: sclerae normal ENT: hearing grossly normal Neck: supple, no JVD, trachea midline Respiratory/Chest: lungs clear, normal breath sounds, no respiratory distress, no accessory muscle use Cardiovascular: regular rate, rhythm, no gallop, no murmur Abdomen: normal bowel sounds, non tender, soft, + distended (mild) Extremities: no pedal edema Neurologic/Psychiatric: alert, oriented x 3 Skin: normal color, warm/dry (Elo Adam PA-C) Laboratory Results Last 24 Hours Test 01/27/18 04:58 White Blood Count 13.74 K/uL Red Blood Count 4.35 M/uL Hemoglobin 12.8 g/dL Hematocrit 38.1 % Mean Corpuscular Volume 87.6 fL Mean Corpuscular Hemoglobin 29.4 pg Mean Corpuscular Hemoglobin Concent 33.6 g/dl RDW Standard Deviation 44.6 fL RDW Coefficient of Variation 13.9 % Platelet Count 136 K/uL Mean Platelet Volume 11.5 fL Sodium Level 138 mmol/L Potassium Level 3.9 mmol/L Chloride Level 105 mmol/L Carbon Dioxide Level 25 mmol/L Anion Gap 8.0 mmol/L Blood Urea Nitrogen 9 mg/dl Creatinine 0.93 mg/dl Est Creatinine Clear Calc Drug Dose 55.8 ml/min Estimated GFR () 70.7 Estimated GFR (Non- 61.0 BUN/Creatinine Ratio 10.0 Random Glucose 99 mg/dl Calcium Level 8.1 mg/dl Chemistry Specimen Hemolysis (Eol Adam PA-C) Assessment and Plan 72 y/o F who was admitted on 01/26 for MDR UTI and cdiff Sepsis 2/2 C. Diff with Pancolitis, POA: - Presented febrile with leukocytosis; elevated lactic - improving at this time and afebrile - Currenty with 7 BMs today alone - continue fluids to keep up with excretions - likely will be able to reduce tomorrow as she is taking in orals without issue currently - Flagyl 500 mg QID and Vanco po; Lactobacillus TID MDR E. Coli UTI: - Multiple treatments with Invanz x 2 and Ayvcaz x 1 - Initially treated with Zosyn but will hold per ID recommendations and patient currently is asymptomatic from urinary standpoint - ID Following - appreciate recommendations - requesting repeat UA when diarrhea improves to further assess urine to R/O element of contamination Hyponatremia: RESOLVED - Continue to monitor Joint Pain: - This is likely OA with some exacerbation - She is Lyme IgG + and will await further laboratories HTN/PACs: - Atenolol 50 mg TID Insomnia: Ativan HS PRN DVT Prophylaxis: SCDs Code Status: FULL RESUSCITATION Disposition: - Await Cx and await clinical improvement; hopeful D/C next 2-3 days Continued [facility] stay due to: other (awaiting Cx and reduction in BMs) Discharge planning: home (Elo Adam, JULIAN) Reviewed: Pt Seen/Exam by Me (Roslyn Ritter MD) History Physician Diet Kitchen Cook Supervision Note: I interviewed and examined the patient. Discussed with JOEL Adam and agree with findings and plan as documented in the note. Any exceptions or clarifications are listed here: Patient feeling much improved today already. Has no further abdominal pain. Her diarrhea has slowed down tremendously. It is nonbloody. She denies chest pain or shortness of breath. She thinks that maybe she had a slight amount of dysuria and cloudy urine recently, but did not seem all that significant. Vitals reviewed Gen: AAOx3, NAD HEENT: anicteric sclerae, EOMI CV: RRR no mgr nl S1S2 Pulm: CTAB no wcr Abd: +BS soft NT ND no masses or hernias Ext: no edema, 2+ DP pulses Skin: no rashes, warm/dry Neuro: full strength throughout Patient is a 72-year-old female with a history of MDR E. coli recurrent UTIs, OA , HTN, here with C. difficile colitis. UA appears positive and is growing E. coli, however this been a recurrent issue for her and may just be asymptomatic bacteriuria. -Improving overall with treatment of C. difficile -Continue p.o. vancomycin, metronidazole has been discontinued by ID -Discontinue IV Zosyn -Continue IV fluids for hydration Documented By: Roslyn Ritter (Roslyn Ritter MD)
[2018-01-27 15:46] VITALS: BP 103/68; PULSE 65; TEMP 36.8; O2SAT 96
[2018-01-27] MEDS: LORAZEPAM 0.5 MG TAB PO PRN (23:19)
[2018-01-28] VITALS: BP 121/68; PULSE 61; TEMP 37.1; O2SAT 95
[2018-01-28] MEDS: RASPBERRY SYRUP 5 ML UDP PO SCH ×2 (06:07→12:47)
[2018-01-28] MEDS: VANCOMYCIN HCL 125 MG/2.5ML SOLN PO SCH ×2 (06:07→12:47)
[2018-01-28 07:14] VITALS: BP 163/81; PULSE 93; TEMP 37; O2SAT 95
[2018-01-28 07:23] VITALS: BP 144/82; PULSE 58; TEMP 37; O2SAT 97
[2018-01-28] MEDS: LACTOBACILLUS ACIDOPHILUS (FLORANEX) TAB PO SCH ×2 (07:39→12:57)
[2018-01-28] MEDS: SODIUM CHLORIDE 0.9% 1000ML 1,000 ML IV SCH (07:39)
[2018-01-28] MEDS: OMEGA-3 (PURIFIED FISH OIL) 1 GM CAP PO SCH (07:40)
[2018-01-28] MEDS: GLUCOSAMINE SULFATE 500 MG CAP PO SCH (07:40)
[2018-01-28] MEDS: CEROVITE ADV FORMULA TAB PO SCH (07:41)
[2018-01-28 09:27] LABS: HEMATOCRIT 39.2 % (37-47); MEAN CELL VOLUME 87.3 fL (80-100); MEAN CORPUSCULAR HGB CONC 33.2 g/dl (32-36); MEAN PLATELET VOLUME 11.1 fL (7.4-10.4); PLATELET COUNT 249 K/uL (130-400); RED CELL DISTRIBUTION WIDTH CV 14.1 % (11.5-14.5); RED CELL DISTRIBUTION WIDTH SD 44.8 fL (36.4-46.3)
[2018-01-28 09:55] LABS: CALCIUM 8.1 mg/dl (8.5-10.1); CREATININE 0.85 mg/dl (0.60-1.20); POTASSIUM 3.4 mmol/L (3.5-5.1)
[2018-01-28] MEDS ORDERED: POTASSIUM CHLORIDE 20 MEQ TABCR PO STA (10:33)
--- NOTE | 2018-01-28 13:28 | Progress Note ---
Subjective Date of Service: Jan 28, 2018. Subjective Pt evaluation today including: conversation w/ patient, physical exam, chart review, lab review pt seen in followup, doing much better. diarrhea significantly improved but not quite resolved. no f/c. blood cultures negative, urine culture again with MDR E. coli - no symptoms, off of zosyn since yesterday. clinically stable. tolerating po vanco. wbc improved to 11. Asking to go home. Denies abd pain, no n/v, eating. all remaining ros reviewed and are negative Objective Vital Signs Date Time Temp Pulse Resp B/P (MAP) Pulse Ox O2 Delivery O2 Flow Rate FiO2 01/28/18 09:18 Room Air 01/28/18 07:23 37.0 58 16 144/82 (102) 97 Room Air 01/28/18 00:00 Room Air 01/28/18 00:00 37.1 61 20 121/68 (85) 95 Room Air 01/27/18 15:46 36.8 65 18 103/68 (80) 96 Room Air 01/27/18 15:40 Room Air 01/27/18 14:11 64 124/79 (94) Physical Exam General Appearance: WD/WN, no apparent distress Eyes: normal inspection, EOMI Neck: supple Respiratory/Chest: lungs clear, normal breath sounds, no respiratory distress Cardiovascular: regular rate, rhythm, no edema Abdomen: non tender, soft Extremities: non-tender, no pedal edema Neurologic/Psychiatric: alert, oriented x 3 Skin: normal color Laboratory Results Item Value Date Time Blood Culture - Preliminary Resulted 01/26/18 1139 Blood NO GROWTH TO DATE. Blood Culture - Preliminary Resulted 01/26/18 1125 Blood NO GROWTH TO DATE. Urine Culture - Preliminary Resulted 01/26/18 1240 Urine , Clean Catch Escherichia Coli Esbl C.difficile Toxin B Gene (PCR) - Final Complete 01/26/18 1320 Stool Positive for C. difficile toxin B gene Urine Culture - Final Complete 01/26/18 1240 Urine , Clean Catch Escherichia Coli Esbl Last 24 Hours Test 01/28/18 08:54 White Blood Count 11.50 K/uL Red Blood Count 4.49 M/uL Hemoglobin 13.0 g/dL Hematocrit 39.2 % Mean Corpuscular Volume 87.3 fL Mean Corpuscular Hemoglobin 29.0 pg Mean Corpuscular Hemoglobin Concent 33.2 g/dl RDW Standard Deviation 44.8 fL RDW Coefficient of Variation 14.1 % Platelet Count 249 K/uL Mean Platelet Volume 11.1 fL Sodium Level 138 mmol/L Potassium Level 3.4 mmol/L Chloride Level 108 mmol/L Carbon Dioxide Level 24 mmol/L Anion Gap 6.0 mmol/L Blood Urea Nitrogen 8 mg/dl Creatinine 0.85 mg/dl Est Creatinine Clear Calc Drug Dose 61.1 ml/min Estimated GFR () 78.8 Estimated GFR (Non- 68.0 BUN/Creatinine Ratio 9.9 Random Glucose 106 mg/dl Calcium Level 8.1 mg/dl Magnesium Level 2.3 mg/dl Assessment and Plan (1) C. difficile colitis Assessment & Plan: continue po vanco, responding well. would hold systemic abx although urine culture again +, asymptomatic, suspect chronic colonization. she will follow up post d/c from hospital and monitor symptoms and response to c diff treatment. would benfit from probiotics. She understands and is in agreement with current treatment plan. discussed with primary service. ok for d/c when otherwise stable. (2) Leukocytosis (3) Positive urine culture Continued [facility] stay due to: other (awaiting Cx and reduction in BMs) Discharge planning: home
[2018-01-28] MEDS ORDERED: VANC5CAP PO (14:30)
[2018-01-28] MEDS ORDERED: LCTX PO (14:30)
--- NOTE | 2018-01-28 14:35 | Discharge Instructions ---
Discharge Instructions Date of Service Jan 28, 2018. Admission Reason for Admission: Diarrhea Discharge Discharge Diagnosis / Problem: Clostridium difficile Discharge Goals Goal(s): Decrease discomfort, Improve function, Increase independence Activity Recommendations Activity Limitations: resume your previous activity . Instructions / Follow-Up Instructions / Follow-Up Clostridium difficile with Colitis: IMPROVING - You will only need to continue Vancomycin 125 mg four times a day. You had 2 doses today and will need to take 2 dose later today then resume four times a day on 01/29. -- The Flagyl you were on was stopped and will just need the one medication - Recommend to hold probiotics until 02/02 to allow the vancomycin to just focus on the bad bacteria. Then can resume probiotics. Will give a prescription but [id number] ones work as well; Can also eat yogurt E. Coli UTI: - Plan to just watch at this point as you might be colonized with it. Dr. Garcia would like to follow up with you as an outpatient to monitor this - Will also add Vitamin C and Cranberry pills to help keep your urine more acidic to prevent growth - Also recommending to stay hydrated. Recommend urinating about 12 times a day. Best thing to look at is color of urine and if it is cloudy or dark drink more water. Current Hospital Diet Patient's current hospital diet: Regular Diet Discharge Diet Recommended Diet: Regular Diet Pending Studies Studies pending at discharge: no Medical Emergencies . Who to Call and When: Medical Emergencies: If at any time you feel your situation is an emergency, please call 911 immediately. . Non-Emergent Contact Non-Emergency issues call your: Primary Care Provider Call Non-Emergent contact if: you have a fever, your pain is concerning you, you have any medication questions . . "Provider Documentation" section prepared by Elo Adam. .
[2018-01-28] MEDS ORDERED: CRAN1TAB3 PO (14:37)
[2018-01-28] MEDS ORDERED: ASCO1CAP3 PO (14:37)
[2018-01-28 15:14] VITALS: BP 131/80; PULSE 58; TEMP 36.9; O2SAT 97
[2018-01-28 15:46] VITALS: BP 131/80; PULSE 58; TEMP 36.9; O2SAT 97
--- NOTE | 2018-01-28 18:22 | Discharge Summary ---
Discharge Summary Date of Service Jan 28, 2018. Discharge Summary Admission Date: Jan 26, 2018 at 14:25 Discharge Date: Jan 28, 2018 Discharge Disposition: Home Principal Diagnosis: Sepsis 2/2 C. Diff Colitis Problems/Secondary Diagnoses: 1. C. Diff Colitis 2. HTN 3. PACs 4. OA 5. MDR E. Coli UTI 6. Insomnia Procedures: CT ABD/PELVIS IV CONTRAST ONLY FINDINGS: Lower chest: There are basilar atelectatic changes. There is mild subpleural reticulation. Liver: There is hepatic steatosis. There is a 28 mm left lobe hepatic hypodensity likely representing a cyst. There is additional hypodensity the junction of the right and left lobes, likely representing an additional cyst. Gallbladder: Surgically absent. There is mild dilatation of the common hepatic and common bile duct. Spleen: Normal in size and attenuation. Pancreas: Unremarkable. Adrenal glands: Unremarkable. Kidneys: There is symmetric renal cortical enhancement. The kidneys are normal in size without hydronephrosis. Bowel: There is diffuse colonic wall thickening with mild infiltration the pericolonic fat. The findings are indicative of a pancolitis. There are no findings to indicate acute diverticulitis. Peritoneum: There is no intraperitoneal free air or abdominal ascites. There is a small ventral hernias similar to the prior study Vasculature: The abdominal aorta is normal in course and caliber. Adenopathy: There are scattered mildly prominent mesenteric lymph nodes likely reactive Pelvic viscera: The bladder, and pelvic viscera are unremarkable. Skeletal structures: No destructive osseous lesions are seen. IMPRESSION: 1. Moderately extensive diffuse colonic wall thickening consistent with a pancolitis. 2. No evidence of bowel obstruction. No evidence of free air 3. Hepatic steatosis. Consultations: 1. Infectious Disease Medication Reconciliation New Medications: Ascorbic Acid (Vitamin C) 500 Mg Cap 1 CAP PO DAILY for 30 Days, #30 CAP Cranberry (Vaccinium Macrocarp (Cranberry) 450 Mg Tab 450 MG PO DAILY for 30 Days, #30 TABS Lactobacillus Acidophilus (Floranex) 1 Tab Tab 1 TAB PO DAILY for 30 Days, #30 TABS Start on 02/02. Vancomycin Hcl (Vancomycin) 125 Mg Cap 125 MG PO QID, #34 TAB Continued Medications: Atenolol (Tenormin) 50 Mg Tab 50 MG PO TID Fish Oil (Range-3) 1 Ea Cap 1 CAP PO BID Flurbiprofen (Ansaid) 100 Mg Tab 100 MG PO BID Glucosamine Sulfate (Glucosamine) 1,000 Mg Tab 1000 MG PO DAILY, TAB Lorazepam (Ativan) 0.5 Mg Tab 0.5 MG PO HS Multivitamins/Minerals (Mvi With Minerals) Tab 1 TAB PO QAM Discharge Exam Review of Systems: Constitutional: No fever, No chills ENT: No nasal symptoms, No sore throat Respiratory: No cough, No shortness of breath Cardiovascular: No chest pain Abdomen: + diarrhea (improving - some loose stool but becoming more formed) , No pain, No nausea, No vomiting, No constipation, No GI bleeding Genitourinary - Female: No dysuria, No urinary frequency Hematologic / Lymphatic: No abnormal bleeding/bruising Integumentary: No rash Physical Exam: General Appearance: WD/WN, no apparent distress ENT: hearing grossly normal Neck: supple, no JVD, trachea midline Respiratory/Chest: lungs clear, normal breath sounds, no respiratory distress, no accessory muscle use Cardiovascular: regular rate, rhythm, no gallop, no murmur Abdomen / GI: normal bowel sounds, non tender, soft Extremities: no pedal edema Neurologic/Psychiatric: alert, oriented x 3 Skin: normal color, warm/dry Hospital Course ADMISSION: 72 y/o F c/o worsening diarrhea. Pt states that she has been on and off IV abx for the last few months due to a persistent/recurrent MDR Ecoli UTI. She follows with Dr. Lui for this. She had the first of these UTIs over a year ago and had been on multiple courses of macrobid via her PCP. The UTI would not clear and she started working with Dr. Lui more recently. She was initially place on Invanz, however after she completed a course her urine cx was still +. She completed a second course of Invanz, but again with a + cx. She was then put on Avycaz which she finished about 3 weeks ago. She went on a cruise with her sister within a few days of completion of IV abx. She had a few bouts of "mild" diarrhea, fatigue, joint aches. She took Imodium and this cleared quickly. She then went to [place] and had another few bouts of mild diarrhea, which again cleared with Imodium. Pt started having much more intense diarrhea with fevers on Saturday and this has worsened since that time. She has been having about 15-18 bowel movements daily. She has lower abd pain. She is nauseated at times, but no emesis and she has been able to eat without issue other than low appetite due to fatigue and worsening joint aches. Pt denies fever, SOB, chest pain, LE pain or swelling. Pt was on a probiotic with the extended abx use, but she is not sure what type of bacteria she was taking. She has never had cdiff prior, however her sister has hx of MDR UTI and cdiff as well. Pt initially was not able to have a bowel movement upon arrival to the ED, however she did take Imodium around 4am today. She is now returning to frequent bowel movements. Pt states her UTI sx are cloudy urine with mild burning and she has been having those again. She feels that she "picked something up" in 2016 on a trip to [facility] as it was shortly after this that her UTI issues started. She is concerned that this bacteria is spreading throughout her entire body at this point. Pt called Dr. Lui's office on Saturday for an appt, however there was no availability. She is to see Dr. Lui tomorrow. HOSPITAL COURSE: Sepsis 2/2 C. Diff with Pancolitis, POA: - Frequency of stool have reduced and stool beginning to be more formed; She is afebrile and tolerating diet - Was initially treated with Flagyl but this has been changed to Vancomycin 125 mg QID to complete a 10 day course - Recommend continued probiotics with recommendations to begin these on 02/02 to allow the Vancomycin to focus on the c.diff and not compete with normal cem MDR E. Coli UTI: - Multiple treatments with Invanz x 2 and Ayvcaz x 1 - Initially treated with Zosyn but will hold per ID recommendations and patient currently is asymptomatic from urinary standpoint - Recommend against treating asymptomatic UTIs and discussed this with ID as patient is likely colonized with this organism and symptoms are vague of cloudy urine and mild dysuria which may not necessarily represent a true infection - Started her on Vitamin C and Cranberry to help make urine more acidic. Recommended to drink plenty of fluids to keep urine clear and to urinate frequently through the day - ID Following - and Dr. Garcia planning to follow as outpatient Joint Pain: - This is likely OA with some exacerbation due to acute illness; Lyme IgG is positive with further testing positive however does not fit a true Lyme picture Disposition: - Recommend F/U with PCP in next 7-10 days and ID for continued monitoring Total Time Spent: Greater than 30 minutes This includes examination of the patient, discharge planning, medication reconciliation, and communication with other providers. Discharge Instructions Please refer to the electronic Patient Visit Report (Discharge Instructions) for additional information. Additional Copies To RV. Cortez MD; Susan Dunaway CRNP
== END 2018-01-28 17:07 | disposition home or self-care (01) | DRG 872 ==
LOC: C.EDB 10:44 → UNDOADMIN 14:25 → C.MS2W 14:25 → ENRESERV 14:41
PROVIDERS: ADMIT Family Medicine; ATTEND Family Medicine
DX: A41.9 Sepsis, unspecified organism (principal); E87.1 Hypo-osmolality and hyponatremia; N39.0 Urinary tract infection, site not specified; A04.72 Enterocolitis due to Clostridium difficile, not specified as recurrent; B96.20 Unspecified Escherichia coli [E. coli] as the cause of diseases classified elsewhere; I10 Essential (primary) hypertension; G47.00 Insomnia, unspecified; M19.90 Unspecified osteoarthritis, unspecified site; Z79.2 Long term (current) use of antibiotics; Z79.899 Other long term (current) drug therapy; Z87.891 Personal history of nicotine dependence

== ENCOUNTER → 2018-02-03 | Outpatient (CLI) | payer BC ==
[~2018-02-03] MED LIST changes: +ASCO1CAP3 PO; +CRAN1TAB3 PO; +GLUC10007 PO; +LCTX PO; +VANC5CAP PO
[2018-02-03 17:33] LABS: HEMATOCRIT 39.9 % (37-47); HEMOGLOBIN 13.4 g/dL (12.0-16.0); MEAN CELL VOLUME 86.9 fL (80-100); MEAN CORPUSCULAR HEMOGLOBIN 29.2 pg (25-34); MEAN CORPUSCULAR HGB CONC 33.6 g/dl (32-36); MEAN PLATELET VOLUME 10.9 fL (7.4-10.4); PLATELET COUNT 292 K/uL (130-400); RED CELL DISTRIBUTION WIDTH CV 14.3 % (11.5-14.5); RED CELL DISTRIBUTION WIDTH SD 45.2 fL (36.4-46.3); WHITE BLOOD COUNT 15.25 K/uL (4.8-10.8)
[2018-02-03 18:04] LABS: BLOOD UREA NITROGEN 15 mg/dl (7-18); CALCIUM 9.2 mg/dl (8.5-10.1); CARBON DIOXIDE 27 mmol/L (21-32); CREATININE 0.87 mg/dl (0.60-1.20); GLUCOSE 88 mg/dl (70-99); POTASSIUM 4.7 mmol/L (3.5-5.1); SODIUM 137 mmol/L (136-145)
== END | disposition home or self-care (01) ==
LOC: C.LAB1850 16:46
PROVIDERS: ATTEND Nurse Practitioner Adult Health
DX: A04.72 Enterocolitis due to Clostridium difficile, not specified as recurrent (principal); D72.829 Elevated white blood cell count, unspecified

== ENCOUNTER → 2018-02-13 | Outpatient (CLI) | payer BC ==
[2018-02-13 12:25] LABS: BASO % 2.3 %; EOS % 6.3 %; EOS ABS # 0.54 K/uL (0-0.5); HEMATOCRIT 41.5 % (37-47); HEMOGLOBIN 13.5 g/dL (12.0-16.0); IG# 0.02 K/uL (0.00-0.02); LYMPH % 36.9 %; LYMPH ABS # 3.18 K/uL (1.2-3.4); MEAN CELL VOLUME 88.7 fL (80-100); MEAN CORPUSCULAR HEMOGLOBIN 28.8 pg (25-34); MEAN CORPUSCULAR HGB CONC 32.5 g/dl (32-36); MEAN PLATELET VOLUME 11.9 fL (7.4-10.4); MONO % 7.4 %; MONO ABS # 0.64 K/uL (0.11-0.59); NEUT % 46.9 %; NEUT ABS # 4.03 K/uL (1.4-6.5); PLATELET COUNT 230 K/uL (130-400); RED CELL DISTRIBUTION WIDTH CV 14.8 % (11.5-14.5); RED CELL DISTRIBUTION WIDTH SD 47.8 fL (36.4-46.3); WHITE BLOOD COUNT 8.61 K/uL (4.8-10.8)
== END | disposition home or self-care (01) ==
LOC: C.LAB1850 11:06
PROVIDERS: ATTEND Nurse Practitioner Adult Health
DX: D72.829 Elevated white blood cell count, unspecified (principal)

== ENCOUNTER → 2018-03-12 | Outpatient (CLI) | payer BC ==
--- NOTE | 2018-03-13 14:17 | MAMMOGRAPHY REPORT ---
BILATERAL DIGITAL SCREENING MAMMOGRAM TOMOSYNTHESIS WITH CAD: 03/12/2018 CLINICAL HISTORY: Routine screening. Patient has no complaints. TECHNIQUE: Breast tomosynthesis in addition to standard 2D mammography was performed. Current study was also evaluated with a Computer Aided Detection (CAD) system. COMPARISON: Comparison is made to exams dated: 03/11/2017 mammogram, 03/06/2016 mammogram, 02/07/2015 m ammogram, 02/05/2014 mammogram, 02/04/2013 mammogram, and 02/04/2012 mammogram - [facility] enter. BREAST COMPOSITION: There are scattered areas of fibroglandular density in both breasts. FINDINGS: No suspicious masses, calcifications, or areas of architectural distortion are noted in ei ther breast. There has been no significant interval change compared to prior exams. Scattered bilater al benign-appearing calcifications are not significantly changed. IMPRESSION: ACR BI-RADS CATEGORY 2: BENIGN There is no mammographic evidence of malignancy. A 1 year screening mammogram is recommended. The pa tient will receive written notification of the results. Approximately 10% of breast cancers are not detected with mammography. A negative mammographic report should not delay biopsy if a clinically suggestive mass is present. Aliya Moss M.D. /:03/12/2018 14:09:01 Payroll Technician: Brenda SANFORD)(M), [facility] letter sent: Normal 1/2 BI-RADS Code: ACR BI-RADS Category 2: Benign
== END | disposition home or self-care (01) ==
LOC: C.MAMM 12:55
PROVIDERS: ATTEND Internal Medicine
DX: Z12.31 Encounter for screening mammogram for malignant neoplasm of breast (principal)

== ENCOUNTER → 2018-05-19 | Outpatient (CLI) | payer BC ==
[~2018-05-19] MED LIST changes: -ASCO1CAP3 PO; -CRAN1TAB3 PO; -LCTX PO; -VANC5CAP PO
== END | disposition home or self-care (01) ==
LOC: C.LAB1850 14:01
PROVIDERS: ATTEND Internal Medicine
DX: N39.0 Urinary tract infection, site not specified (principal)

== ENCOUNTER 2024-11-03 06:25 | Observation (INO) ==
--- NOTE | 2024-09-28 08:42 | PAT Medication Instructions ---
Medication Instructions Date of Service September 28, 2024 Home Medications Medication Instructions Recorded atenolol 50 mg tablet (Tenormin) 50 mg PO TID #270 tabs 01/19/24 lorazepam 0.5 mg tablet 0.5 - 1 mg (1 - 2 x 0.5 mg) PO HS 03/17/24 #60 tabs tramadol 50 mg tablet See Rx Instructions PO DAILY PRN 04/10/24 pain #30 tabs flurbiprofen 100 mg tablet 100 mg PO BID #180 tabs 05/27/24 multivitamin with minerals 1 cap PO QAM atenolol 50 mg tablet (Tenormin) 50 mg PO TID lorazepam 0.5 mg tablet 0.5 - 1 mg (1 - 2 x 0.5 mg) PO HS tramadol 50 mg tablet See Rx Instructions PO DAILY PRN flurbiprofen 100 mg tablet 100 mg PO BID amlodipine 2.5 mg tablet 2.5 mg PO QAM amlodipine 5 mg tablet 5 mg PO QAM cholecalciferol (vitamin D3) 50 mcg (2,000 unit) capsule 50 mcg PO QPM glucosamine sulf dipot chlr,msm,chond 550 mg-C 30 mg-sariah 1 mg capsule (Glucosamine Chondroitin) 1 cap PO QAM metformin 500 mg tablet,extended release 24 hr 500 mg PO DAILY olmesartan 40 mg tablet 40 mg PO QAM omega 2-amc-uqw-fish oil 1,200 mg (144 mg-216 mg) capsule (Fish Oil) 1 cap PO BID Continue as directed tramadol 50 mg tablet See Rx Instructions PO DAILY PRN(if needed) ASK your surgeon for instructions flurbiprofen 100 mg tablet 100 mg PO BID STOP taking 2 weeks before surgery (or as soon as possible if surgery is within 2 weeks) glucosamine sulf dipot chlr,msm,chond 550 mg-C 30 mg-sariah 1 mg capsule (Glucosamine Chondroitin) 1 cap PO QAM omega 9-wbc-ozj-fish oil 1,200 mg (144 mg-216 mg) capsule (Fish Oil) 1 cap PO BID DO NOT take the morning of surgery multivitamin with minerals 1 cap PO QAM metformin 500 mg tablet,extended release 24 hr 500 mg PO DAILY olmesartan 40 mg tablet 40 mg PO QAM Take morning of surgery With a small sip of water, OTHERWISE NOTHING TO EAT OR DRINK AFTER MIDNIGHT: atenolol 50 mg tablet (Tenormin) 50 mg PO TID amlodipine 2.5 mg tablet 2.5 mg PO QAM amlodipine 5 mg tablet 5 mg PO QAM Take evening before surgery atenolol 50 mg tablet (Tenormin) 50 mg PO TID lorazepam 0.5 mg tablet 0.5 - 1 mg (1 - 2 x 0.5 mg) PO HS cholecalciferol (vitamin D3) 50 mcg (2,000 unit) capsule 50 mcg PO QPM Other Notes If you have any questions please call us at [phone] or [phone] or [phone] or [phone]
--- NOTE | 2024-10-05 09:50 | Anesthesiology Consultation ---
Date of Service October 05, 2024 Assessment & Plan (1) Encounter for pre-operative examination: Plan - patient reports upcoming [place] cardiology pre-operative evaluation 10/23/2024. - will request anesthesia records from [facility] for 2013 colectomy. - check BSG am DOS. Chart Review Chart Review: Pending: Refer to Additional Notes / Consult section and Patient seen in Pre Admission Testing Teaching & Discussion Pre-Anesthesia Teaching/Discussion Notes: Instructed NPO after midnight before surgery, except medications with 15 cc of water. Medication instructions provided according to the PAT guidelines. History Surgery Operation Date: 11/03/24 12:40 Proposed Procedures p Left Total Knee Arthroplasty - Walter Dunaway MD Height/Weight Height: 5 ft Weight: 90.6 kg Allergies Allergy/AdvReac Type Severity Reaction Status Date / Time atorvastatin AdvReac Intermediate myalgia Verified 09/25/24 13:37 ezetimibe [From Zetia] AdvReac Intermediate myalgia Verified 09/25/24 13:37 lovastatin AdvReac Intermediate myalgia Verified 09/25/24 13:37 simvastatin AdvReac Intermediate myalgia Verified 09/25/24 13:37 Aakucfc-WGO-NlP Reductase AdvReac Intermediate MUSCLE Verified 09/25/24 13:37 Inhibitor ACHES [Ohjovzg-Ouu-Qlw Reductase Inhibitor] Medications Home Medications Medication Instructions Recorded Confirmed Last Taken multivitamin with minerals 1 cap PO QAM 07/07/18 09/25/24 Unknown atenolol 50 mg tablet (Tenormin) 50 mg PO TID #270 tabs 01/19/24 09/25/24 Unknown lorazepam 0.5 mg tablet 0.5 - 1 mg (1 - 2 x 0.5 mg) PO HS 03/17/24 09/25/24 Unknown #60 tabs tramadol 50 mg tablet See Rx Instructions PO DAILY PRN 04/10/24 09/25/24 Unknown pain #30 tabs flurbiprofen 100 mg tablet 100 mg PO BID #180 tabs 05/27/24 09/25/24 Unknown amlodipine 2.5 mg tablet 2.5 mg PO QAM 09/25/24 09/25/24 Unknown amlodipine 5 mg tablet 5 mg PO QAM 09/25/24 09/25/24 Unknown cholecalciferol (vitamin D3) 50 50 mcg PO QPM 09/25/24 09/25/24 Unknown mcg (2,000 unit) capsule glucosamine sulf dipot 1 cap PO QAM 09/25/24 09/25/24 Unknown chlr,msm,chond 550 mg-C 30 mg-sariah 1 mg capsule (Glucosamine Chondroitin) metformin 500 mg tablet,extended 500 mg PO DAILY weightloss 09/25/24 09/25/24 Unknown release 24 hr olmesartan 40 mg tablet 40 mg PO QAM 09/25/24 09/25/24 Unknown omega 2-jbj-oci-fish oil 1,200 mg 1 cap PO BID 09/25/24 09/25/24 Unknown (144 mg-216 mg) capsule (Fish Oil) Past Medical History Medical History (Updated 10/05/24 @ 11:24 by Iris Linn PA-C) Difficult intravenous access History of anesthesia reaction (~2012) during the colectomy patient was told her respirations really slowed so surgeon changed approach from rectal to mid-line incision and post-op peristalsis with extended hospitalization History of diverticulitis History of ESBL E. coli infection (2017) urine - treated, no current issues Hx of basal cell carcinoma s/p excision-scalp Hx of Clostridium difficile infection ~2016 after having a MDRO (pt unsure what it was called) in her urine and having multiple abx treatments. followed with Dr. Lui at the time. no problems since. Hyperlipidemia Hypertension controlled, stable per pt; white coat HTN Iliac crest bone pain History of excision tumor left iliac crest Lumbar spinal stenosis Lung nodule Obesity Osteoarthritis PAC (premature atrial contraction) palpitations controlled with beta lea per pt Prediabetes per medical record - states she is taking metformin for weightloss Scarring of lung has right lower lobe scarring (possibly left also) from a past lung infection (~late s) where she had to have a mucus plug removed Scoliosis Patient denies h/o stroke, seizures, heart attack, heart failure, blood clots/DVTs or blood transfusions. Exercise / Class Metabolic Activity II 4-5 Yardwork/Stairs/Walk up hill (shortness of breath with one flight of stairs gradually worsening, onset several years ago-denies chest discomfort- patient notes correlation to reduced physical activity with orthopedic dysfunction) Past Family History Family History Mother , age 88 Hypertension Father , age 86 TIA (transient ischemic attack) Cardiac disorder Other No family history of adverse response to anesthesia Denies family history of Ovarian cancer Prostate cancer Myocardial infarction Breast cancer Past Surgical History Surgical History History of bilateral carpal tunnel release History of bronchoscopy w/ removal of a mucus plug (Dr Weathers) late History of cholecystectomy History of colectomy r/t repeated diverticulitis episodes History of colonoscopy History of tonsillectomy and adenoidectomy S/P lumbar microdiscectomy (1984) L4-L5 Status post surgery (1973) History of excision tumor left iliac crest Past Anesthesia History No Family Hx of Anesthesia Complications History of PONV No Hx of PONV and No Hx of Motion Sickness Social History Smoking Status: Former smoker Do You Dip or Chew Tobacco: No Smoking End Date: quit at age 39 Hx Alcohol Use: Yes alcohol intake frequency: holidays/special occasions only Hx Substance Use: No substance use type: does not use Review of Systems Patient denies chest pain, snoring, witnessed apneas, reflux, fever, chills, cough, wheezing, or palpitations. Physical Exam Vital Signs Vitals BP 154/83 P 70 TEMP 97.8 SP02 96% on RA RESP 18 Physical Patient resting comfortably in chair in no acute distress, alert and oriented, responding appropriately throughout visit Full cervical extension range of motion without pain TMD 3.5 finger breadths Mallampati Score 2 Dentition: several caps/crowns and implants, denies chipped or loose teeth, or bridges Lungs: normal respiratory effort. Good air movement, clear throughout to auscultation, no adventitious breath sounds Cardiac: regular rate and rhythm, no murmurs noted Carotid arteries: negative bruit bilat Lab Results Anesthesia Preop Results Results Anesthesia Widget: WBC 8.57 K/ul (4.8-10.8) 10/05/24 Hgb 14.2 g/dl (12.0-16.0) 10/05/24 Hct 42.6 % (37.0-47.0) 10/05/24 Plt 205 K/uL (130-400) 10/05/24 Na 136 mmol/L (136-145) 10/05/24 K 4.7 mmol/L (3.5-5.1) 10/05/24 Cl 102 mmol/L (98-107) 10/05/24 CO2 26 mmol/L (21-32) 10/05/24 BUN 18 mg/dl (6-23) 10/05/24 Creat 0.84 mg/dl (0.6-1.2) 10/05/24 Glucose Level 96 mg/dl (70-99(Fasting)) 10/05/24 PT 10.5 Seconds (9.0-12.0) 10/05/24 PTT 27 Seconds (21-31) 10/05/24 INR 1.0 (0.9-1.1) 10/05/24 HA1c 5.9 % (4.5-5.6) H 10/05/24 Blood Type O Positive 10/05/24 Antibody Screen NEGATIVE 10/05/24 Testing Electrocardiogram Date: 10/05/24 NSR, rate 66 bpm Left axis deviation Incomplete RBBB Chest X-Ray Date: 10/05/24 No acute cardiopulmonary findings. Echocardiogram Date: 09/25/24 EF 55-60% No LV regional wall motion abnormalities Moderate cLVH Mild to moderate mitral annular calcification Mild mitral regurgitation
--- NOTE | 2024-11-02 07:30 | History & Physical Report ---
Date of Service November 02, 2024 Assessment & Plan (1) Knee pain, bilateral: 79-year-old female with multiple medical comorbidities with advanced limiting bilateral knee DJD. She is failed all conservative treatment. 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 She like to proceed with knee replacement surgery. Plan: Orgran proceed with left total knee replacement. The risk and benefit this procedure explained the patient she understands. Informed consent was obtained. She is hoping to be discharged to a rehab facility either [facility] or [facility] but her [place] for a brief rehab stay. Will use aspirin for DVT prophylaxis. (2) Osteoarthritis: (3) HTN (hypertension): (4) Hyperlipidemia: (5) Lumbar spondylosis: (6) Obesity: History of Present Illness Chief Complaint: . Bilateral knee pain and discomfort, left side greater than right. Primary Care Provider: Katia Velazquez MD . The patient is an 79-year-old female from [facility] who presents for surgical treatment of her knees. She has a long history of knee problems and was actually scheduled for knee replacement back in 2016. She developed urinary tract problems and was canceled. She was initially going to do this at [facility]. Over the years her knees have gradually gotten worse. She has had to resort to using a cane to get around. She is markedly functionally limited by her knee pain and discomfort. She is hoping to proceed with knee replacement surgery. She has been seen by cardiology and had a recent negative stress test and has been cleared for surgery. Allergies Allergy/AdvReac Type Severity Reaction Status Date / Time atorvastatin AdvReac Intermediate myalgia Verified 10/23/24 11:06 ezetimibe [From Zetia] AdvReac Intermediate myalgia Verified 10/23/24 11:06 lovastatin AdvReac Intermediate myalgia Verified 10/23/24 11:06 simvastatin AdvReac Intermediate myalgia Verified 10/23/24 11:06 Erdxlao-DSV-KdX Reductase AdvReac Intermediate MUSCLE Verified 10/23/24 11:06 Inhibitor ACHES [Dymbfyu-Cyf-Iyz Reductase Inhibitor] Home Medications Medication Instructions Recorded Confirmed Type multivitamin with minerals 1 cap PO QAM 07/07/18 10/23/24 History atenolol 50 mg tablet (Tenormin) 50 mg PO TID #270 tabs 01/19/24 10/23/24 Rx tramadol 50 mg tablet See Rx Instructions PO DAILY PRN 04/10/24 10/23/24 Rx pain #30 tabs flurbiprofen 100 mg tablet 100 mg PO BID #180 tabs 05/27/24 10/23/24 Rx amlodipine 2.5 mg tablet 2.5 mg PO QAM 09/25/24 10/23/24 History amlodipine 5 mg tablet 5 mg PO QAM 09/25/24 10/23/24 History cholecalciferol (vitamin D3) 50 50 mcg PO QPM 09/25/24 10/23/24 History mcg (2,000 unit) capsule glucosamine sulf dipot 1 cap PO QAM 09/25/24 10/23/24 History chlr,msm,chond 550 mg-C 30 mg-sariah 1 mg capsule (Glucosamine Chondroitin) metformin 500 mg tablet,extended 500 mg PO DAILY weightloss 09/25/24 10/23/24 History release 24 hr olmesartan 40 mg tablet 40 mg PO QAM 09/25/24 10/23/24 History omega 7-kio-qcm-fish oil 1,200 mg 1 cap PO BID 09/25/24 10/23/24 History (144 mg-216 mg) capsule (Fish Oil) lorazepam 0.5 mg tablet 0.5 - 1 mg (1 - 2 x 0.5 mg) PO HS 10/12/24 10/23/24 Rx #60 tabs walker #1 ea 10/28/24 Rx Past Med/Surg History Problem List LVH (left ventricular hypertrophy) Encounter for pre-operative examination Obesity Prediabetes Vitamin B12 deficiency Vitamin D deficiency Lumbar spinal stenosis Knee pain, bilateral Lumbar compression fracture L1, L2, L3 Spondylisthesis Acquired deformity of toe (Acute) Actinic keratosis (Acute) Anxiety (Acute) Chronic bilateral low back pain without sciatica (Acute) Hyperlipidemia (Acute) Lumbar spondylosis (Chronic) Osteoarthritis (Chronic) HTN (hypertension) (Chronic) Medical History Difficult intravenous access PAC (premature atrial contraction) palpitations controlled with beta lea per pt Scoliosis History of ESBL E. coli infection (2018) urine - treated, no current issues Scarring of lung has right lower lobe scarring (possibly left also) from a past lung infection (~late s) where she had to have a mucus plug removed History of anesthesia reaction (~2012) per 2012 anesthesia records, pneumoperitoneum was not tolerated and therefore procedure was converted to open colectomy Osteoarthritis Prediabetes per medical record - states she is taking metformin for weightloss Obesity Lumbar spinal stenosis Hyperlipidemia Hypertension controlled, stable per pt; white coat HTN Hx of basal cell carcinoma s/p excision-scalp History of diverticulitis Hx of Clostridium difficile infection ~2017 after having a MDRO (pt unsure what it was called) in her urine and having multiple abx treatments. followed with Dr. Lui at the time. no problems since. Lung nodule Iliac crest bone pain History of excision tumor left iliac crest Surgical History History of bronchoscopy w/ removal of a mucus plug (Dr Weathers) late s Status post surgery (1973) History of excision tumor left iliac crest S/P lumbar microdiscectomy (1984) L4-L5 History of colonoscopy History of bilateral carpal tunnel release History of colectomy r/t repeated diverticulitis episodes History of cholecystectomy History of tonsillectomy and adenoidectomy Family History Mother , age 88 Hypertension Father , age 86 TIA (transient ischemic attack) Cardiac disorder Other No family history of adverse response to anesthesia Denies family history of Ovarian cancer Prostate cancer Myocardial infarction Breast cancer Social History Smoking Status: Former smoker Tobacco Type: Cigarettes Age Started Using Tobacco: 14; Age Quit Using Tobacco: 34; packs per day: 1; Second Hand Exposure: No; Do You Dip or Chew Tobacco: No; Hx Alcohol Use: Yes Hx Substance Use: No Preferred Language: Tamaz[place] Communication Ability: Effective Visual Impairment: No Limitations Hearing Ability: Use of Hearing Aid Sample Tester Grinder Required: No Beliefs That Will Affect Care: None marital status: / Current Living Situation: Alone current occupational status: employed and retired Feels Safe at Home: Yes Childhood Exposure to Second-Hand Smoke: Yes Dental Care, Regularly: Yes Physical Activity Frequency: Daily Seatbelt Use: always Sunscreen Use: Yes Assistive Devices: Cane, Glasses and Hearing Aid - Bilateral Review of Systems All systems reviewed & are unremarkable except as noted in HPI & below. Physical Exam . Physical examination reveals a pleasant elderly female but looks in reasonably good health. Examination of both knees reveal patient ambulates with a bit of a shuffling gait. Examination left knee reveals varus alignment tender the knee. She got bony hypertrophy. She got a fairly stiff knee with about a 15 degree flexion contracture and only bends to 90 degrees. No pain with hip motion. Examination of the right leg reveals a little bit of lymphedema. Range of motion about 15-95. No particular pain with hip motion. She is neurologically intact. Constitutional WD/WN, vitals as above Respiratory normal respiratory effort, lungs clear to auscultation Cardiovascular RRR, no murmur, no edema Gastrointestinal (Abdomen) normal bowel sounds, soft, nontender, no hepatosplenomegaly Results & Data Results & Data Laboratory Results . Diagnostic Findings . X-rays of both knees reveal advanced bilateral tricompartment DJD. She has advanced tricompartment disease in all 3 compartments of both knees. Large osteophytes. Diffuse osteopenia. PG Care Time/CCT Total # of Minutes Spent Total Time Spent with Patient: Total time spent is greater than 50% in coordination of care (as documented) at patient's floor/unit and/or counseling patient: Coding Level of Care Code None Diagnoses Knee pain, bilateral M25.561; M25.562 Osteoarthritis M19.90 Primary hypertension I10 Hypertension type: primary hypertension Hyperlipidemia, unspecified hyperlipidemia type E78.5 Hyperlipidemia type: unspecified Lumbar spondylosis M47.816 Class 2 severe obesity due to excess calories with serious comorbidity and body mass index (BMI) of 37.0 to 37.9 in adult E66.812; E66.01; Z68.37 Obesity type: due to excess calories Obesity classification: adult class 2 (BMI 35 - 39.9) Serious obesity comorbidity presence: with serious comorbidity Body mass index: BMI 37.0-37.9 (3) HTN (hypertension) Hypertension type: primary hypertension Qualified Code(s): I10 - Essential (primary) hypertension (4) Hyperlipidemia Hyperlipidemia type: unspecified Qualified Code(s): E78.5 - Hyperlipidemia, unspecified (6) Obesity Obesity type: due to excess calories Obesity classification: adult class 2 (BMI 35 - 39.9) Serious obesity comorbidity presence: with serious comorbidity Body mass index: BMI 37.0-37.9 Qualified Code(s): E66.812 - Obesity, class 2; E66.01 - Morbid (severe) obesity due to excess calories; Z68.37 - Body mass index [BMI] 37.0-37.9, adult
[~2024-11-03 06:25] MED LIST changes: -ATEN50TA8 PO; +BUPIVACAINE 0.25% PF 30 ML VIAL ONE; +BUPIVACAINE 0.5 % 5 MG/1 ML PF 10ML VIAL ONE; +DEXAMETHASONE SOD INJ 4 MG/ML VIAL ONE; +EPINEPHrine INJ 1 MG/ML AMP ONE; -FLUR100T PO; -GLUC10007 PO; -LORA-741 PO; -MULT-513 PO; -OMEG10007 PO
--- NOTE | 2024-11-03 06:51 | History & Physical Bridge Note ---
Date of Service November 03, 2024 History & Physical Bridge Note I have examined the patient, reviewed the History & Physical and in the interval since the performance of the History & Physical I have noted the following changes of clinical significance: no changes noted
[2024-11-03] MEDS: ACETAMINOPHEN 500 MG TAB PO SCH ×2 (07:21→13:52)
[2024-11-03] MEDS: METOCLOPRAMIDE HCL 10 MG TABLET PO SCH (07:22)
[2024-11-03] MEDS: CeleBREX 200 MG CAP PO SCH (07:22)
[2024-11-03] MEDS: FAMOTIDINE 20 MG TAB PO SCH (07:22)
[2024-11-03] MEDS: LR 60ML/HR IV SCH (07:23)
[2024-11-03] MEDS: dexAMETHasone**PF** 10 MG/ML VIAL IV SCH (07:23)
[2024-11-03] MEDS: LR 500ML BOLUS, THEN 15ML/HR IV SCH (07:23)
[2024-11-03] MEDS ORDERED: MIDAZOLAM HCL 1 MG/ML 2ML VIAL ONE ×2 (07:36→09:33)
[2024-11-03] MEDS ORDERED: fentaNYL citrate PF 100 MCG/2 ML VIAL ONE (07:36)
[2024-11-03] MEDS ORDERED: LIDOCAINE 2% 2 ML VIAL/AMP(20MG/ML) INFIL ONE (07:36)
[2024-11-03] MEDS ORDERED: ONDANSETRON INJ 2 MG/ML 2 ML VIAL ONE (07:36)
[2024-11-03] MEDS ORDERED: PROPOFOL IV EMULSION 10 MG/ML 20 ML VIAL IV ONE ×2 (07:36→10:20)
[2024-11-03] MEDS ORDERED: PROMETHAZINE HCL 6.25 MG in SODIUM CHLORIDE 0.9% 50 ML IV PRN (07:54)
[2024-11-03] MEDS ORDERED: ePHEDrine sulfate 50 MG/ML AMP IV PRN (07:54)
[2024-11-03] MEDS ORDERED: ONDANSETRON INJ 2 MG/ML 2 ML VIAL IV PRN ×2 (07:54→12:09)
[2024-11-03] MEDS ORDERED: fentaNYL citrate PF 100 MCG/2 ML VIAL IV PRN (07:54)
[2024-11-03] MEDS ORDERED: ATROPINE SULFATE 0.1 MG/ML 10ML SYR IV PRN (07:54)
--- NOTE | 2024-11-03 07:54 | Anesthesiology Consultation ---
Date of Service November 03, 2024 Assessment & Plan Chart Review Chart Review: Acceptable Risk for Surgery and Patient NOT seen in Pre Admission Testing Consults Requested none ASA ASA2 Proposed Anesthesia Anesthesia Type: MAC Spinal Regional Regional Laterality: Left Site: Adductor Canal Risk / Benefits Reviewed With: PT / POA / Parent / Guardian, Accepts Plan and Informed Consent Obtained History Surgery Operation Date: 11/03/24 08:50 Proposed Procedures p Left Total Knee Arthroplasty - Walter Dunaway MD Height/Weight Height: 5 ft Weight: 89.9 kg Allergies Allergy/AdvReac Type Severity Reaction Status Date / Time atorvastatin AdvReac Intermediate myalgia Verified 11/03/24 06:57 ezetimibe [From Zetia] AdvReac Intermediate myalgia Verified 11/03/24 06:57 lovastatin AdvReac Intermediate myalgia Verified 11/03/24 06:57 simvastatin AdvReac Intermediate myalgia Verified 11/03/24 06:57 Becigmd-QZK-IdC Reductase AdvReac Intermediate MUSCLE Verified 11/03/24 06:57 Inhibitor ACHES [Qckncdq-Deu-Shf Reductase Inhibitor] Medications Home Medications Medication Instructions Recorded Confirmed Last Taken multivitamin with minerals 1 cap PO QAM 07/07/18 11/03/24 11/02/24 09:00 atenolol 50 mg tablet (Tenormin) 50 mg PO TID #270 tabs 01/19/24 11/03/24 11/03/24 05:30 tramadol 50 mg tablet See Rx Instructions PO DAILY PRN 04/10/24 11/03/24 08/25/24 pain #30 tabs flurbiprofen 100 mg tablet 100 mg PO BID #180 tabs 05/27/24 11/03/24 11/02/24 09:00 amlodipine 2.5 mg tablet 2.5 mg PO QAM 09/25/24 11/03/24 11/03/24 05:30 amlodipine 5 mg tablet 5 mg PO QAM 09/25/24 11/03/24 11/03/24 05:30 cholecalciferol (vitamin D3) 50 50 mcg PO QPM 09/25/24 11/03/24 11/02/24 18:30 mcg (2,000 unit) capsule glucosamine sulf dipot 1 cap PO QAM 12/06/24 01/14/25 12/03/24 chlr,msm,chond 550 mg-C 30 mg-sariah 1 mg capsule (Glucosamine Chondroitin) metformin 500 mg tablet,extended 500 mg PO DAILY weightloss 09/25/24 11/03/24 09/22/24 release 24 hr olmesartan 40 mg tablet 40 mg PO QAM 09/25/24 11/03/24 11/02/24 09:00 omega 9-zis-hpe-fish oil 1,200 mg 1 cap PO BID 09/25/24 11/03/24 10/20/24 (144 mg-216 mg) capsule (Fish Oil) lorazepam 0.5 mg tablet 0.5 - 1 mg (1 - 2 x 0.5 mg) PO HS 10/12/24 11/03/24 11/02/24 23:00 #60 tabs walker #1 ea 10/28/24 Unknown Active Medications Generic Name Dose Route Start Last Admin Trade Name Freq PRN Reason Stop Dose Admin Acetaminophen 1,000 mg 11/03/24 06:00 11/03/24 07:21 Acetaminophen 500 Mg Tab PO 11/03/24 18:00 1,000 mg PREOP KOKO Administration Celecoxib 200 mg 11/03/24 06:00 11/03/24 07:22 Celebrex 200 Mg Cap PO 11/03/24 18:00 200 mg PREOP KOKO Administration Dexamethasone Sodium Phosphate 10 mg 11/03/24 06:00 11/03/24 07:23 DexamethasonePf 10 Mg/Ml Vial IV 11/03/24 18:00 10 mg PREOP KOKO Administration Famotidine 20 mg 11/03/24 06:00 11/03/24 07:22 Famotidine 20 Mg Tab PO 11/03/24 18:00 20 mg PREOP KOKO Administration Lactated Ringer's 1,000 mls @ 60 mls/hr 11/03/24 06:00 11/03/24 07:23 Lr IV 11/03/24 22:39 Not Given .[id number] KOKO Lactated Ringer's 1,000 mls @ 15 mls/hr 11/03/24 06:00 11/03/24 07:23 Lr IV 11/03/24 18:00 15 mls/hr .Q24H KOKO Administration Metoclopramide HCl 10 mg 11/03/24 06:00 11/03/24 07:22 Metoclopramide Hcl 10 Mg Tablet PO 11/03/24 18:00 10 mg PREOP KOKO Administration NPO Date Last Intake of Fluids: 11/02/24 Time Last Intake of Fluids: 23:00 Last Intake of Fluids Comment: 3 am sip water for meds Date Last Intake of Solids: 11/02/24 Time Last Intake of Solids: 18:00 Past Medical History Medical History Difficult intravenous access PAC (premature atrial contraction) palpitations controlled with beta lea per pt Scoliosis History of ESBL E. coli infection (2017) urine - treated, no current issues Scarring of lung has right lower lobe scarring (possibly left also) from a past lung infection (~late s) where she had to have a mucus plug removed History of anesthesia reaction (~2012) per 2012 anesthesia records, pneumoperitoneum was not tolerated and therefore procedure was converted to open colectomy Osteoarthritis Prediabetes per medical record - states she is taking metformin for weightloss Obesity Lumbar spinal stenosis Hyperlipidemia Hypertension controlled, stable per pt; white coat HTN Hx of basal cell carcinoma s/p excision-scalp History of diverticulitis Hx of Clostridium difficile infection ~2017 after having a MDRO (pt unsure what it was called) in her urine and having multiple abx treatments. followed with Dr. Lui at the time. no problems since. Lung nodule Iliac crest bone pain History of excision tumor left iliac crest Exercise / Class Metabolic Activity II 4-5 Yardwork/Stairs/Walk up hill Past Family History Family History Mother , age 88 Hypertension Father , age 86 TIA (transient ischemic attack) Cardiac disorder Other No family history of adverse response to anesthesia Denies family history of Ovarian cancer Prostate cancer Myocardial infarction Breast cancer Past Surgical History Surgical History History of bronchoscopy w/ removal of a mucus plug (Dr Weathers) late s Status post surgery (1973) History of excision tumor left iliac crest S/P lumbar microdiscectomy (1984) L4-L5 History of colonoscopy History of bilateral carpal tunnel release History of colectomy r/t repeated diverticulitis episodes History of cholecystectomy History of tonsillectomy and adenoidectomy Past Anesthesia History No Hx of Anesthesia Complications and No Family Hx of Anesthesia Complications History of PONV No Hx of PONV and No Hx of Motion Sickness Social History Smoking Status: Former smoker Do You Dip or Chew Tobacco: No Smoking End Date: quit at age 39 Hx Alcohol Use: Yes alcohol intake frequency: holidays/special occasions only Hx Substance Use: No substance use type: does not use Physical Exam Vital Signs Last Vital Signs Temp 36.9 C 11/03/24 07:05 Pulse 78 11/03/24 07:05 Resp 20 11/03/24 07:05 BP 179/89 H 11/03/24 07:05 Pulse Ox 96 11/03/24 07:05 O2 Del Method Room Air 11/03/24 07:05 Constitutional + obese ENMT Mouth: no dentition abnormality Thyromental Distance: > or= 3.5 Finger Breadths Mallampati Class: II Neck normal visual inspection Respiratory normal respiratory effort Auscultation: lungs clear to auscultation bilaterally Cardiovascular Rate/Rhythm: regular rate and regular rhythm Psychiatric Orientation: alert Testing Laboratory Results 11/03/24 06:52 POC Glucose 108 H Electrocardiogram Date: 10/05/24 NSR, rate 66 bpm Left axis deviation Incomplete RBBB Chest X-Ray Date: 10/05/24 No acute cardiopulmonary findings. Echocardiogram Date: 09/25/24 EF 55-60% No LV regional wall motion abnormalities Moderate cLVH Mild to moderate mitral annular calcification Mild mitral regurgitation
--- NOTE | 2024-11-03 08:53 | History & Physical Bridge Note ---
Date of Service November 03, 2024 History & Physical Bridge Note I have examined the patient, reviewed the History & Physical and in the interval since the performance of the History & Physical I have noted the following changes of clinical significance: no changes noted. The patient has been seen by cardiology and cleared. She does not require medical clearance.
[2024-11-03] MEDS: ceFAZolin 2000MG 2,000 MG/15 ML SYR IV SCH ×2 (09:15→17:50)
[2024-11-03] MEDS ORDERED: PHENYLEPHRINE 100MCG/ML 5ML SYR ONE (09:31)
[2024-11-03] MEDS ORDERED: ePHEDrine sulfate 50 MG/5 ML SYR ONE (09:31)
[2024-11-03] MEDS: ROPIV 0.5% 246mg, Ketorolac 30mg, EPINEPHrine 0.5mg in NSS INFIL SCH (09:45)
[2024-11-03] MEDS: TRANEXAMIC ACID 1,000 MG **IV Intra-op IV SCH (10:08)
[2024-11-03] MEDS: ORTHO JOINT ANESTHETIC ONE (10:09)
--- NOTE | 2024-11-03 11:14 | Operative Report ---
PG Post Operative Report Pre & Post Diagnosis Operation Date: 11/03/24 08:50 Pre-Op Diagnosis: Left Knee Osteoarthritis Post-Op Diagnosis: Left Knee Osteoarthritis I identified the patient and participated in the time-out.: Yes Procedure Operation Date: 11/03/24 08:50 Actual Procedures p Left Total Knee Arthroplasty(Left) - Walter Dunaway MD Surgeon Walter Dunaway MD Value Stream Manager Slava Joseph PA-C Estimated Blood Loss 50 Findings Consistent with Post-Op Diagnosis Operative findings were advanced left knee tricompartment DJD. She had extensive grade 4 zwpb-co-jawn disease in all 3 compartments. She had osteophytes in all 3 compartments. She had a very stiff knee preoperatively with about a 20 degree flexion contracture and only bends about 80 degrees. Specimens Left knee sent for pathology. Anesthesia Type Spinal MAC Complications none Disposition Accompanied Patient To Recovery: No Indications The patient is an 79-year-old female with a long history of bilateral knee pain discomfort has become more debilitating over time. That she was planning on having surgery several years ago but COVID interrupted those plans. Overall time she developed increased pain discomfort and stiffness in both knees to the point where she is having trouble even getting around with a cane. She elected proceed with surgical management. The patient was medically optimized preoperatively. Description of Procedure Operative implants consist of: 1. Biomet Vanguard size 67.5 left posterior stabilized femoral component. 2. Biomet size 71 tibial tray. 3. 10 mm posterior stabilized polyethylene insert. 4. 31 x 8 all poly patella. The patient was taken to the op room, identified, and placed on the operating table in a supine position. All contact areas were meticulously padded. A Mauricio catheter was placed in sterile fashion. A left thigh turn was then placed. Left lower extremity was then prepped and draped in usual sterile fashion. The left lower extremity was then elevated and exsanguinated with use of an Esmarch and a turn was placed at 300 mmHg. An anterior approach to the left knee was then performed to longitudinal incision centered over the patella. Sharp dissection was carried through subcutaneous tissue down the extensor mechanism. A medial parapatellar arthrotomy incision was made. Some subperiosteal dissection was carried out medially. The fat pad was dissected beneath patella tendon. Lateral patellofemoral ligament was released. Patella subluxated laterally knee was flexed. The osteophytes were taken off distal fe mur. The ACL and PCL were then released and the distal femur the tibia subluxated anteriorly. The external tibial alignment jig was then placed on the anterior face the tibia and adjusted 12 to 14 mm medially. The proximal tibial cut was made remove about 2 mm of bone from the medial side. Some osteophytes taken off medially and posterior medially. The tibia sized to a size 71. Attention drawn the femur. The distal femur was entered with a sharp drill. Intramedullary canal was suction. A left 5 degree valgus cutting guide was placed. The distal femoral cutting block was pinned in place. Distal femoral cut was made to take an additional 3 mm of bone off distal femur. The femur was then sized to a size 67.5. The AP cutting block was pinned parallel to the epicondylar axis which was 5 degrees of external rotation. The anterior cut, anterior chamfer, posterior cut, posterior chamfer cuts were made. The box cutting guide was placed and adjust slight lateral and the box cut was made. The knee was flexed. The remnants of the medial and lateral menisci were excised. The osteophytes taken off the posterior aspect the femur. Trial femoral component was placed. The tibial tray was pinned in Lilia external rotation and the drill and stem punch were used to create defect in the proximal tibia for the tibial tray. The knee was then trialed and a 10 mm insert fit most appropriately. Attention drawn the patella. The patella was cleaned of all soft tissue. Patella thickness measured about 18 mm in thickness was cut down to 13. Was sized to a size 31 patella. Some large osteophytes were removed. The lug holes were drilled for the early patella component. The lateral osteophytes removed. Patella button was placed. Knee was taken through range of motion patella tracked nicely with no thumbs test. Attention was then drawn toward placement permanent components. Nupathe all trial components were removed. Bone plug was placed in the distal femur limit blood loss. Double batch Palacos G cement was mixed. A Biomet Vanguard size 67.5 left posterior stabilized femoral component, size 71 tibial tray, a 10 mm posterior Byce polyethylene insert, and a 31 x 8 all poly patella then cemented in place. The knee was brought out into full extension till cement hardened. A final cement check was then performed. The pericapsular tissues were injected with total of 100 cc of Ortho mix. The patient did receive 1 g tranexamic acid. The tourniquet was then let down for final tourniquet time of 60 minutes. Hemostasis assured with electrocautery. Extensor mechanism then closed with combination 1 PDS suture and then 1 Vicryl suture in a [id number] fashion. Extensor Meclomen checked found to be intact with subcutaneous tissues then closed with 2 Dexon suture in a buried interrupted fashion the skin was closed skin perfecto. Leg was then cleaned and dried and sterile dressed with Xeroform, 4 fours, sterile cast padding, Jak bandage were applied. Patient then transferred to the recovery room in stable condition. Patient tolerated procedure well and there were no complications. Slava Joseph, my physician virtual customer assistant, was present for the entire procedure. His assistance was essential and required for appropriate patient positioning, prepping and draping, surgical exposure, performing the technical details of the operation, placement the implants, closure of the wound, and placement of the sterile bandage. I attest to the content of the Intraoperative Record and any orders documented therein. Any exceptions are noted below.
--- NOTE | 2024-11-03 11:45 | XRay Report ---
XR knee LT 1 or 2V routine CLINICAL HISTORY: Postoperative evaluation. COMPARISON: Left knee radiographs August 20, 2024. FINDINGS: Alignment of the total left knee arthroplasty is anatomic. There is no periprosthetic frac ture or unexpected radiopaque foreign body. There are skin perfecto. A well-corticated ossicle along t he tibial tubercle is chronic. IMPRESSION: Expected findings following total left knee arthroplasty. ACT 112: Negative or not required by law. Electronically signed by: German Damian M.D. 11/03/2024 11:42 AM
[2024-11-03] MEDS ORDERED: MAGNESIUM HYDROXIDE SUSP 30 ML UDC PO PRN (12:09)
[2024-11-03] MEDS ORDERED: METOCLOPRAMIDE HCL INJ 5 MG/ML 2 ML VIAL IV PRN (12:09)
[2024-11-03] MEDS ORDERED: PHARMACY GLYCEMIC MGMT CONSULT PRN (12:09)
[2024-11-03] MEDS ORDERED: bisacodyL 10 MG SUPP PR PRN (12:09)
[2024-11-03] MEDS ORDERED: HYDROmorphone INJ 0.5 MG/0.5 ML SYR IV PRN (12:09)
[2024-11-03] MEDS ORDERED: NALOXONE HCL 0.4 MG/1 ML VIAL/CARP IV PRN (12:09)
[2024-11-03] MEDS ORDERED: ALUMINUM/MAGNESIUM SUSP 30 ML UDC PO PRN (12:09)
--- NOTE | 2024-11-03 12:26 | Anesthesiology Progress Note ---
Date of Service November 03, 2024 Anesthesia Post Procedure Vital Signs Vital Signs: Temp Pulse Pulse Resp BP Pulse Ox O2 Del Method 11/03/24 12:09 36.6 C 81 16 125/68 94 Nasal Cannula 11/03/24 11:45 76 16 116/81 96 Room Air 11/03/24 11:30 36.8 C 76 16 109/62 96 Nasal Cannula 11/03/24 11:20 77 16 123/49 L 94 Nasal Cannula 11/03/24 11:10 78 16 117/66 97 Room Air 11/03/24 11:04 36.8 C 83 24 102/70 87 L Room Air 11/03/24 07:05 36.9 C 78 20 179/89 H 96 Room Air O2 Flow Rate 11/03/24 12:09 2 11/03/24 11:45 11/03/24 11:30 3 11/03/24 11:20 4 11/03/24 11:10 11/03/24 11:04 11/03/24 07:05 Transfer of Care Handoff Completed per policy Notes Mental Status: alert / awake / arousable Patient Amnestic to Procedure: Yes Nausea / Vomiting: adequately controlled Pain: adequately controlled Airway Patency, RR, SpO2: stable & adequate BP & HR: stable & adequate Hydration State: stable & adequate Neuraxial Anesthesia: was administered and sensory block is resolving Anesthetic Complications: no major complications apparent and Pt Satisfied with anesthetic care
[2024-11-03] MEDS ORDERED: GLUCAGON FOR INJ 1 MG VIAL SQ PRN ×2 (13:00)
[2024-11-03] MEDS ORDERED: GLUCOSE 10 TAB/TUBE PO PRN ×2 (13:00)
[2024-11-03] MEDS ORDERED: DEXTROSE 50% 50 ML SYRINGE IV PRN ×2 (13:00)
[2024-11-03] MEDS ORDERED: CARBOHYDRATES FOR HYPOGLYCEMIA PO PRN ×2 (13:00)
[2024-11-03] MEDS ORDERED: GLUCOSE 40% GEL 15 GM TUBE PO PRN ×2 (13:00)
[2024-11-03] MEDS: KETOROLAC TROMETHAMINE 15 MG/ML VIAL IV SCH (13:52)
--- NOTE | 2024-11-03 14:19 | Pharmacy Report ---
Glycemic Ortho Sign Off Note - Date of Service November 03, 2024 - Scope Glycemic Pharmacist consulted for glycemic control and to write orders per [facility] inpatient glycemic control protocol. - Objective Accuchecks BSG (last 24hrs):: 11/03/24 11/03/24 06:52 13:57 POC Glucose 108 H 155 H - Assessment * Pt is maintained on oral antidiabeticagent[s]as anoutpatient with excellent control per recent A1c (5.6%)--Per patient, she is not diabetic and was taking metformin at home for weight loss * Will d/c glycemic consult and restart patient's home dose of metformin as it is expected that BSG will rise some since she received steroids. - Plan For Inpatient Glycemic Control * Basal and bolus insulin * Not needed based on A1c, pre-op BSGs, and minimal risk factors for insulin resistance * Pharmacy has entered glycemic orders and is signing off of the glycemic consult. We will no longer be making adjustments to inpatient regimen. Please feel free to re-consult if needed. Thank you.
[2024-11-03] MEDS: ATENOLOL 50 MG TABLET PO SCH (15:05)
[2024-11-03] MEDS: TRANEXAMIC ACID / 0.7% NACL 1,000 MG/100 ML BAG IV SCH (17:50)
[2024-11-03] MEDS: ASCORBIC ACID 500 MG TAB PO SCH (17:51)
[2024-11-03] MEDS: CHOLECALCIFEROL 25 MCG (1000 UNITS) TAB PO SCH (17:51)
[2024-11-03] MEDS: DOCUSATE SODIUM 100 MG CAP PO SCH (20:58)
[2024-11-03] MEDS: SENNA 8.6 MG TAB PO SCH (20:58)
[2024-11-03] MEDS: OMEGA-3 (PURIFIED FISH OIL) 1 GM CAP PO SCH (21:02)
[2024-11-03] MEDS: ASPIRIN 81 MG ECTAB PO SCH (21:02)
[2024-11-03] MEDS: LORazepam 0.5 MG TAB PO SCH (21:02)
[2024-11-04 06:58] LABS: Hematocrit (blood only) 33.1 % (37.0-47.0); Hemoglobin 11.1 g/dl (12.0-16.0); Mean Corpuscular Hemoglobin 29.6 pg (25.0-34.0); Mean Corpuscular Hgb Conc 33.5 g/dL (32.0-36.0); Mean Corpuscular Volume 88.3 fL (80.0-100.0); Mean Platelet Volume 12.5 fL (9.4-12.4); Platelet Count 178 K/uL (130-400); RDW Coefficient of Variation 13.9 % (11.5-14.5); RDW Standard Deviation 44.8 fL (36.4-46.3); Red Blood Count 3.75 M/uL (4.20-5.40)
[2024-11-04 07:25] LABS: BUN Creatinine Ratio 24.5 (10-20); Calcium 8.8 mg/dl (8.6-10.3); Creatinine Clr Calc Pharmacy 45.7 ml/min; Potassium 4.6 mmol/L (3.5-5.1)
[2024-11-04] MEDS: LOSARTAN POTASSIUM 50 MG TAB PO SCH (08:00)
[2024-11-04] MEDS: CEROVITE ADV FORMULA TAB PO SCH (08:00)
[2024-11-04] MEDS: MULTIVITAMIN TAB PO SCH (08:01)
[2024-11-04] MEDS: amLODIPine BESYLATE 5 MG TAB PO SCH (08:01)
[2024-11-04] MEDS: metFORMIN HCL 500 MG TAB PO SCH (08:02)
[2024-11-04] MEDS: dexAMETHasone 10 MG in SYRINGE 0 ML IV SCH (08:02)
[2024-11-04] MEDS ORDERED: amLODIPine BESYLATE 5 MG TAB PO SCH ×2 (09:00)
[2024-11-04] MEDS ORDERED: NON-FORMULARY MEDICATION (Glucos Sul 2kcl-Msm-Chond-C-Mn [Glucosamine Chondroitin] 550-30- PO SCH (09:00)
--- NOTE | 2024-11-04 09:08 | Orthopedic Progress Note ---
Date of Service November 04, 2024 Assessment & Plan (1) Status post left knee replacement: Assessment: Status post left total knee arthroplasty. Plan: Overall, she is doing quite well today with good pain control to the left knee. She will work with physical therapy later this morning to work on ambulation and range of motion exercises. She would like to be discharged to a skilled rehabilitation center due to her living alone. Case management is working on this. There is a good chance that she may not be approved for rehab. Will continue to monitor this and see how she feels comfortable about going home later this morning. Prescriptions were sent to her pharmacy prior to surgery. She has no questions about the instructions. She is on aspirin for DVT prophylaxis. Dressings can be changed tomorrow. Instructions on dressing changes also given to the patient today. She should continue restrictions modify activities that bring on discomfort to the left knee. She was informed to continue the rest, ice, and elevation procedures when actable. We will see if she is able to go home today or be discharged to a skilled rehabilitation facility. Subjective . Meme was seen evaluated this morning resting comfortably in no apparent distress. She notes that her pain is well-controlled to the left knee this morning. She has been up and out of bed with no significant issues. She has yet to be seen by physical therapy this morning. She denies any concerns with her surgical incision site. She denies any active bleeding, discharge, or signs of infection. She denies any other concerns today. Review of Systems All systems reviewed & are unremarkable except as noted in HPI & below. Physical Exam . On physical examination of the left knee, dressings are clean, dry, intact. No signs of active bleeding, discharge, or signs of infection. No tenderness to palpation. She is able to fully extend her left knee. Limited range of motion and strength secondary to postoperative weakness and soreness. Calf soft nontender to palpation. Negative Homans' sign. Intact plantarflexion and dorsiflexion to the left ankle. +2 DP and PT pulses. Less than 2-second capillary refill. Normal sensation. Neurovascular intact. Results & Data Results & Data Laboratory Results . Diagnostic Findings . Knee X-Ray 11/03/24 11:06 XR knee LT 1 or 2V routine CLINICAL HISTORY: Postoperative evaluation. COMPARISON: Left knee radiographs August 20, 2024. FINDINGS: Alignment of the total left knee arthroplasty is anatomic. There is no periprosthetic fracture or unexpected radiopaque foreign body. There are skin perfecto. A well-corticated ossicle along the tibial tubercle is chronic. IMPRESSION: Expected findings following total left knee arthroplasty. ACT 112: Negative or not required by law. Electronically signed by: German Damian M.D. 11/03/2024 11:42 AM PG Care Time/CCT Total # of Minutes Spent Total Time Spent with Patient: Total time spent is greater than 50% in coordination of care (as documented) at patient's floor/unit and/or counseling patient: Coding Level of Care Code 50261 Post Operative Follow-Up Diagnoses Status post left knee replacement Z96.652
[2024-11-04] MEDS: traMADol HCL 50 MG TABLET PO PRN (14:17)
--- NOTE | 2024-11-05 07:38 | Orthopedic Progress Note ---
Date of Service November 05, 2024 Assessment & Plan (1) Status post left knee replacement: Pain reasonably controlled Continue PT/OT wbat dvt prophylaxis: teds, scd's, aspirin d/c planning: she's hoping to get into rehab/[facility] as she lives alone. Dressing change today will discuss with Dr. Gume Faustin Vince is a 79 year old patient POD 2 from left tka. Having some knee pain but reasonably controlled with tramadol. Slept better last night. Hoping to get accepted to rehab. Review of Systems All systems reviewed & are unremarkable except as noted in HPI & below. Physical Exam .alert and oriented. NAD Left leg: Dressing clean, dry, intact. Able to actively extend her knee, not quite full extension at this time. Able to dorsiflex and plantarflex. NVI Results & Data Results & Data Laboratory Results . Diagnostic Findings . PG Care Time/CCT Total # of Minutes Spent Total Time Spent with Patient: Total time spent is greater than 50% in coordination of care (as documented) at patient's floor/unit and/or counseling patient: Coding Level of Care Code 23412 Post Operative Follow-Up Diagnoses Status post left knee replacement Z96.652
[2024-11-05 14:22] VITALS: TEMP 97.9
[2024-11-06 07:17] VITALS: O2SAT 95
--- NOTE | 2024-11-06 09:32 | Orthopedic Progress Note ---
Date of Service November 06, 2024 Assessment & Plan (1) Status post left knee replacement: Plan: KNEE: 79-year-old woman POD#3 s/p left total knee replacement, doing well overall. Pain is well-controlled. Medically stable. PT recommending continued inpatient rehab. Plan: 1. DVT prophylaxis w/ TEDs, SCDs, ASA 81 mg BID. 2. PT/OT as tolerated. WBAT on the LLE. Encourage heel slides, SLR, full knee extension w/ quad sets. 3. Pain control doing well with current pain regimen. 4. Dressing changes per discharge instructions. 5. Disposition - plan to D/C home w/ assistance from friend and son, possibly later today once cleared by PT/OT and transportation arrangements finalized. 6. F/u 2 weeks post-op w/ orthopedics (Dr. Dunaway's team), or as previously scheduled, for first post-op visit. Admission and Anticipated Discharge Date Admission Date: November 03, 2024 Subjective Patient is POD#3 s/p left total knee arthroplasty by Dr. Dunaway on 11/03/2024. Patient says her pain is well-controlled this morning. Denies CP, SOB, N/V, LLE paresthesia. She is now wishing to return home since case management told her that [facility] did not have any available beds, and she is now also being told that her insurance is not approving/covering her extra days of stay in the hospital. Patient says that she would have help from a friend, and her son, when she returns home. She is trying to work on transportation arrangements w/ the friend since her son is coming from out of town in [place] and would not arrive until late tonight. Physical Exam Physical Exam: GENERAL: AA&Ox3, NAD. Pleasant, affect is calm. Sitting in bedside chair and appears comfortable. RESPIRATORY: Normal respiratory effort with no signs of distress. CHEST/AXILLA: Chest movement symmetrical. No deformities noted. CARDIOVASCULAR: No edema noted. SKIN: [place], warm and dry. MS/EXTREMITY: Knee dressing and CATERINA hose c/d/i; perfecto intact. Thigh is soft, supple. + ankle dorsi/plantarflexion. NVI distally. Calf soft/NT. PT/DP intact. Results & Data Vital Signs (Past 12 Hours) Vital Signs Temp Pulse Resp BP Pulse Ox O2 Del Method 11/06/24 07:16 36.6 C 65 16 156/77 H 95 Room Air
[2024-11-06 14:22] VITALS: BP 187/73; PULSE 73; RESP 20
--- NOTE | 2024-11-09 15:00 | Discharge Summary ---
Date of Service November 09, 2024 Admission HPI (Per Admitting) . The patient is an 79-year-old female from [facility] who presents for surgical treatment of her knees. She has a long history of knee problems and was actually scheduled for knee replacement back in 2017. She developed urinary tract problems and was canceled. She was initially going to do this at [facility]. Over the years her knees have gradually gotten worse. She has had to resort to using a cane to get around. She is markedly functionally limited by her knee pain and discomfort. She is hoping to proceed with knee replacement surgery. She has been seen by cardiology and had a recent negative stress test and has been cleared for surgery. Admission Exam (Per Admitting) . Physical examination reveals a pleasant elderly female but looks in reasonably good health. Examination of both knees reveal patient ambulates with a bit of a shuffling gait. Examination left knee reveals varus alignment tender the knee. She got bony hypertrophy. She got a fairly stiff knee with about a 15 degree flexion contracture and only bends to 90 degrees. No pain with hip motion. Examination of the right leg reveals a little bit of lymphedema. Range of motion about 15-95. No particular pain with hip motion. She is neurologically intact. Principal Diagnosis Same as "Discharge Diagnosis" noted below under Discharge Instructions. Discharge Exam .alert and oriented. NAD Left leg: Dressing clean, dry, intact. Able to actively extend her knee, not quite full extension at this time. Able to dorsiflex and plantarflex. NVI Discharge Data Procedures Performed Operation Date: 11/03/24 08:50 Actual Procedures p Left Total Knee Arthroplasty(Left) - Walter Dunaway MD Ordered Studies 11/03/24 05:00 US - OR guided needle placemen Routine Hospital Course (1) Status post left knee replacement: This is a 79 year old patient admitted on 11/03/24 and underwent total knee arthroplasty. She tolerated the procedure well and there were no complications. Transferred to the PACU post op and later to the orthopedic floor for further care. She was given ancef for antibiotic prophylaxis. She was also given CATERINA stockings, SCDs, and aspirin for DVT prophylaxis. Hemoglobin, hematocrit, and vital signs were monitored during her hospital stay and remained stable. Did not require any blood transfusions. There were no complications during her hospital stay. By post op day #3 the patient was tolerating a diabetic diet, pain was reasonably controlled with oral pain medicine, and she was participating in physical therapy. On post op day #3 the patient was discharged home and set up with home health care. She was denied inpatient rehab and there was no a vailability at the [facility] facility she was considering. She was given printed discharge instructions including prescriptions for extra strength tylenol, aspirin, docusate, and tramadol. Continue physical therapy, weight bearing as tolerated. Continue CATERINA stockings. Follow up approximately 2 weeks post op or sooner if there are problems or concerns. PG Care Time/CCT Total # of Minutes Spent Total Time Spent with Patient: Total time spent is greater than 50% in coordination of care (as documented) at patient's floor/unit and/or counseling patient: Discharge Plan Discharge Items Patient Disposition: Home - Home Health Services Reason For Visit: Left Knee Osteoarthritis Discharge Diagnosis: Left Knee Replacement Activity: Per Instructions section Non-emergency contact: Surgeon Call non-emergency contact if: you have any medication questions Follow-up/Referrals: Katia Velazquez MD [Primary Care Provider] - 11/11/24 11:20 am (Hospital follow up is scheduled for November 11, 2024 at 11:20am) Diet: Carb Consistent or DM2 Addtl Attending Provider Instructions: ACTIVITY RECOMMENDATIONS: Diet: * You may resume previous diet. Physical Therapy: * You will go to physical therapy three times each week for four to six weeks after your surgery in order to regain your knee range of motion and to retrain your knee to work properly. * It is just as important to make sure you are getting your knee perfectly straight as it is to regain your knee bend. * Taking a pain pill an hour before therapy can help you have a more productive and comfortable therapy session. Home Exercise: * You were shown a series of exercises (heel props, heel slides, etc.) in the hospital. Do these exercises three to four times each day including the exercises you were shown in physical therapy. Walking: * Get up and walk several times each day. For the first four weeks, try not to stand or walk for more than one hour at a time. If you do stand or walk for more than one hour, you will not hurt anything, but your knee and leg will likely swell. * As you feel comfortable, you may change from the walker or crutches to a cane and then to independent walking. MEDICATIONS: New Medicine: * You will likely be taking one or more of these medications: 1. Tramadol - A quick and shorter-acting pain medication. Take one to two tablets every six hours to lessen your pain. 2. Aspirin - Thins your blood to lessen the chance of forming a blood clot. * The most common side effects of pain medicine and iron are nausea and constipation. If nausea or constipation is too much of a problem or if you have any questions about your new medicines or doses, call [facility] at . We will try to help you manage these issues. "VERY IMPORTANT TO READ AND REVIEW" Pain: * The immediate post-operative period after knee replacement surgery is often quite painful. * You are given a prescription for pain medicine. You should take it, as directed, when you need it, especially before physical therapy and before going to bed. Pain that interferes with sleep is very common and can last several months. * You will likely need pain medicine for the first four to six weeks. It will not stop all of the pain. The pain will lessen and as you feel better, you may change to milder pain medicine such as Tylenol. * The most common side effects of pain medicine are nausea and constipation, so don't take more than you need. SPECIAL CARE INSTRUCTIONS: TEDs/Elastic Stockings: * The white elastic stockings help limit swelling and prevent blood clots from forming in your legs. The more you wear them, the more they work. * Wear them for six weeks after knee replacement surgery and four weeks after partial knee replacement. Incision Site Care: * Remove dressing postoperative day 2 and then shower. Keep direct shower pressure off the incision site. * After showering, cover perfecto with dry gauze and change daily or more frequently if the dressing is getting saturated with drainage. * Use the CATERINA stockings to hold dressing in place. DO NOT apply tape on the skin. * May completely stop using bandage if wound is dry and no drainage * [place] are removed between 2 and 3 weeks post-op. If your follow-up appointment is made before 2 weeks, please have your appointment re- scheduled. It is too early to remove the perfecto. Prevention of Infection: * Take antibiotics one hour before any dental cleaning, dental work, urological procedure, gastrointestinal procedure or any invasive surgery in order to prevent your new joint from getting infected. * You may get the antibiotics from the doctor performing the procedure or you may call our office at [phone] before and we will call in a prescription to the pharmacy of your choice. Things to Watch For: * Drainage from the incision site that occurs more than one week after your surgery. * Severely increased knee/leg pain or swelling. * Increased redness at the incision site. * Fever above 102 degrees Fahrenheit. * Unusual chest pain or shortness of breath. * Unusual pain or burning with urination. Call [facility] at [phone] with any of the above problems or if you have any questions about your medicines or recovery. FOLLOW UP VISIT: Make an appointment to see your doctor for approximately two weeks after surgery for a progress check and staple removal by calling the office at [phone]. Pending Studies at Discharge: No Stand-Alone Forms: My [facility], Smoking Cessation Medications and DC Order Prescriptions: New acetaminophen [Tylenol Extra Strength] 500 mg Tablet 1,000 mg PO Q8 30 Days Qty: 180 0RF Rx Instructions: Take 3 times per day to lessen pain. aspirin 81 mg Tablet,Delayed Release (Dr/Ec) 81 mg PO BID 45 Days Qty: 90 0RF Rx Instructions: Take to prevent blood clots. tramadol 50 mg Tablet 50 - 100 mg PO Q6H PRN (Reason: pain) Qty: 40 0RF Rx Instructions: Take as needed for Pain. docusate sodium 100 mg Capsule 100 mg PO BID 30 Days Qty: 60 0RF Continued multivitamin with minerals capsule 1 cap PO QAM tramadol 50 mg tablet See Rx Instructions PO DAILY PRN (Reason: pain) Qty: 30 0RF Rx Instructions: 1/2 - 1 tablet PO daily PRN; atenolol [Tenormin] 50 mg tablet 50 mg PO TID Qty: 270 3RF flurbiprofen 100 mg tablet 100 mg PO BID Qty: 180 3RF lorazepam 0.5 mg tablet 0.5 - 1 mg PO HS Qty: 60 5RF (DME) daniel Misc See Rx Instructions .MEDSUPPLY Qty: 1 0RF Rx Instructions: As directed omega 5-pxz-fva-fish oil [Fish Oil] 1,200 (144-216) mg Capsule 1 cap PO BID Glucosamine Chondroitin 550-30-1 mg Capsule 1 cap PO QAM amlodipine 2.5 mg tablet 2.5 mg PO QAM Rx Instructions: take with 5 mg tab amlodipine 5 mg tablet 5 mg PO QAM Rx Instructions: take with 2.5 mg tab daily metformin 500 mg tablet extended release 24 hr 500 mg PO DAILY olmesartan 40 mg tablet 40 mg PO QAM cholecalciferol (vitamin D3) 50 mcg (2,000 unit) capsule 50 mcg PO QPM Rx Instructions: with heaviest meal of the day Admission Data Admit Date/Time: 11/03/24 11:06 Attending Provider: Walter Dunaway Admit Provider: Walter Dunaway Primary Care Provider: Katia Velazquez V. Other Providers: [facility] Other Interventions: Discharge Summary Assessment (RN) Last Done: 11/06/24 13:13
== END 2024-11-06 15:03 | disposition home health service (06) | DRG 470 ==
LOC: ASU 06:25 → INTOOBSV 11:06 → 3E 11:06
DX: E78.5 Hyperlipidemia, unspecified; R73.03 Prediabetes; Z87.891 Personal history of nicotine dependence; M41.9 Scoliosis, unspecified; Z79.84 Long term (current) use of oral hypoglycemic drugs; M17.12 Unilateral primary osteoarthritis, left knee; M47.896 Other spondylosis, lumbar region; I10 Essential (primary) hypertension